=== PATIENT | male | born 1975 | race Caucasian/White ===

== ENCOUNTER 2017-01-29 09:52 | Inpatient (IN) | payer MEDICARE, MEDICAID ==
[2017-01-29] MEDS ORDERED: LORazepam 2 MG/ML SYRINGE IM STA (12:54)
[2017-01-29] MEDS ORDERED: HALOPERIDOL LACTATE 5 MG/ML 1 ML VIAL IM PRN (12:55)
--- NOTE | 2017-01-29 13:58 | ED ---
Psych HPI - General Chief Complaint: Psychiatric Symptoms Stated Complaint: MENTAL HEALTH Time Seen by Provider: 01/29/17 10:58 Source: patient Mode of arrival: ambulatory - History of Present Illness Initial Comments: This 41-year-old white male presents with psychiatric concerns. He apparently is been very paranoid and been hearing voices. He is unable to relay any further significant history due to his paranoid state. He does have long- standing history of psychiatric disorders including schizoaffective disorder, depression, suicidal ideations, anxiety, and alcohol abuse. He apparently has not been taking any of his medications for the past one week per family member. No medical complaints or other concerns. - Related Data Home Medications Medication Instructions Recorded Confirmed Benztropine Mesylate [Cogentin] 1 mg PO BID@0800,1200 01/29/17 01/29/17 QUEtiapine [SEROquel] 400 mg PO HS 01/29/17 01/29/17 risperiDONE [RisperDAL] 1 mg PO DAILY 01/29/17 01/29/17 risperiDONE [RisperDAL] 2 mg PO HS 01/29/17 01/29/17 Previous Rx's Medication Instructions Recorded Divalproex ER [Depakote ER] 1,000 mg PO HS #14 [id number] 01/26/16 Allergies Allergy/AdvReac Type Severity Reaction Status Date / Time Penicillins Allergy Mild Unknown Verified 01/29/17 09:55 Childhood Review of Systems ROS Statement: Those systems with pertinent positive or pertinent negative responses have been documented in the HPI. ROS Other: All systems not noted in ROS Statement are negative. Past Medical History Past Medical History: Hyperlipidemia, Hypertension Additional Past Medical History / Comment(s): Pt did not provide any med history , but from previous visits per documentation, pt had hyperlipidemia and HTN. History of Any Multi-Drug Resistant Organisms: None Reported Past Surgical History: Tonsillectomy Past Anesthesia/Blood Transfusion Reactions: No Reported Reaction Past Psychological History: Anxiety, Depression, Schizophrenia Smoking Status: Current every day smoker Past Alcohol Use History: Heavy Additional Past Alcohol Use History / Comment(s): 3-4 beers three times a week Past Drug Use History: None Reported Additional Drug Use History / Comment(s): Pt states he drinks about 4-5 24 oz. beers about 2-3 times a week, he states he has been drinking more the last year and 1/2. - Past Family History Father Additional Family Medical History / Comment(s): Patient is unable to give any history on his mother or father. He does not have any brothers. He has one sister that apparently is healthy. He has no children. General Exam - General Exam Comments Initial Comments: GENERAL: The patient is well nourished and well hydrated. VITAL SIGNS: Heart rate, blood pressure, respiratory rate reviewed as recorded in nurse's notes. EYES: Pupils are round and reactive. Extraocular movements are intact. No conjunctival / lid redness or swelling. ENT: No external evidence of injury, swelling, or ecchymosis. Airway is patent. Throat is clear. NECK: Nontender. No swelling or evidence of injury. No subcutaneous emphysema. Trachea is midline. No thyroid mass. HEART: Regular rate and rhythm. Good peripheral pulses. LUNGS/CHEST: Breath sounds clear and equal bilaterally. No rales, rhonchi, or wheezes. No ecchymosis, subcutaneous emphysema, or tenderness. ABDOMEN: Abdomen soft without tenderness. No palpable masses or organomegaly. No peritoneal signs. No abdominal wall swelling or ecchymosis. EXTREMITIES: No extremity tenderness. Normal muscle tone and function. No thoracolumbar tenderness. NEUROLOGIC: Sensation is grossly intact. Cranial nerve exam reveals face is symmetrical, tongue is midline, speech is clear. SKIN: No abrasions or ecchymosis is noted. No induration or masses noted. PSYCHIATRIC: Bizarre paranoid and sometimes agitated behavior noted. Limitations: no limitations Course Vital Signs 01/29/17 13:26 Pulse Rate 85 Respiratory 18 Rate Blood Pressure 137/79 O2 Sat by Pulse 96 Oximetry Medical Decision Making - Medical Decision Making The patient was seen and examined. Laboratory is reviewed. The psychiatric team is consult and they would like to admit the patient to the hospital for further psychiatric treatment. It is felt as though he is medically cleared for this. - Lab Data Lab Results 01/29/17 Range/Units 13:13 Urine Opiates Screen Not Detected (NotDetected) Ur Oxycodone Screen Not Detected (NotDetected) Urine Methadone Screen Not Detected (NotDetected) Ur Propoxyphene Screen Not Detected (NotDetected) Ur Barbiturates Screen Not Detected (NotDetected) U Tricyclic Antidepress Not Detected (NotDetected) Ur Phencyclidine Scrn Not Detected (NotDetected) Ur Amphetamines Screen Not Detected (NotDetected) U Methamphetamines Scrn Not Detected (NotDetected) U Benzodiazepines Scrn Not Detected (NotDetected) Urine Cocaine Screen Not Detected (NotDetected) U Marijuana (THC) Screen Not Detected (NotDetected) Disposition Clinical Impression: Psychosis, Paranoia Disposition: ADMITTED IP TO THIS [facility] Condition: Fair Time of Disposition: 13:57 Decision Date: 01/29/17 Decision Time: 13:58
[2017-01-29] MEDS ORDERED: ACETAMINOPHEN TAB 325 MG TAB PO PRN (14:36)
[2017-01-29] MEDS ORDERED: MAG HYDROX/AL HYDROX/SIMETH 30 ML CUP PO PRN (14:36)
[2017-01-29] MEDS ORDERED: ZIPRASIDONE 20 MG VIAL IM PRN (14:36)
[2017-01-29] MEDS ORDERED: MAGNESIUM HYDROXIDE 2,400 MG/10 ML CUP PO PRN (14:36)
[2017-01-29] MEDS ORDERED: LORazepam 2 MG/ML SYRINGE IM PRN (14:43)
[2017-01-29] MEDS: LORazepam 1 MG TAB PO PRN (16:01)
[2017-01-29] MEDS: QUEtiapine 200 MG TAB PO SCH (20:36)
[2017-01-29] MEDS: risperiDONE 1 MG TAB PO SCH (20:36)
[2017-01-29] MEDS: DIVALPROEX ER 500 MG TAB.ER.24H PO SCH (20:38)
[2017-01-30] MEDS ORDERED: risperiDONE 0.5 MG TAB PO SCH (09:00)
[2017-01-30 10:04] LABS: Basophils # (A) 0.1 k/uL (0-0.2); Basophils % (A) 1 %; CH 28.4; CHCM 32.3; Eosinophils % (A) 0 %; HCT 49.1 % (39.0-53.0); HGB 15.6 gm/dL (13.0-17.5); Luc # (Auto) 0.21; Luc % (Auto) 3; Lymphocytes # (A) 2.3 k/uL (1.0-4.8); Lymphocytes % (A) 32 %; MCH 28.1 pg (25.0-35.0); MCHC 31.8 g/dL (31.0-37.0); MCV 88.2 fL (80.0-100.0); Mean Platelet Volume 8.2; Monocytes # (A) 0.5 k/uL (0-1.0); Monocytes % (A) 7 %; Neutrophils # (A) 4.1 k/uL (1.3-7.7); Neutrophils % (A) 57 %; RBC 5.57 m/uL (4.30-5.90); RDW 13.4 % (11.5-15.5); WBC 7.2 k/uL (3.8-10.6); WBC (Perox) 7.29
[2017-01-30] MEDS: BENZTROPINE MESYLATE 1 MG TAB PO SCH ×2 (10:15→13:06)
[2017-01-30] MEDS: NICOTINE 14MG/24HR PATCH TRANSDERM SCH (10:16)
[2017-01-30 10:24] LABS: ALT 44 U/L (21-72); AST 33 U/L (17-59); Alkaline Phosphatase 37 U/L (38-126); Anion Gap 11 mmol/L; Blood Urea Nitrogen 11 mg/dL (9-20); Calcium 9.8 mg/dL (8.4-10.2); Carbon Dioxide 26 mmol/L (22-30); Chloride 107 mmol/L (98-107); Glucose 124 mg/dL (74-99); Non-African American GFR(MDRD) >60 (>60 ml/min/1.73 sqM); Potassium 4.3 mmol/L (3.5-5.1); Sodium 144 mmol/L (137-145); Total Protein 6.9 g/dL (6.3-8.2)
--- NOTE | 2017-01-30 14:18 | P.CONS ---
History of Present Illness - History of Present Illness Patient refused to be seen by medicine. Past Medical History Past Medical History: Hyperlipidemia, Hypertension Additional Past Medical History / Comment(s): Pt did not provide any med history , but from previous visits per documentation, pt had hyperlipidemia and HTN. History of Any Multi-Drug Resistant Organisms: None Reported Past Surgical History: Tonsillectomy Past Anesthesia/Blood Transfusion Reactions: No Reported Reaction Past Psychological History: Anxiety, Depression, Schizophrenia Smoking Status: Current every day smoker Past Alcohol Use History: Heavy Additional Past Alcohol Use History / Comment(s): 3-4 beers three times a week Past Drug Use History: None Reported Additional Drug Use History / Comment(s): Pt states he drinks about 4-5 24 oz. beers about 2-3 times a week, he states he has been drinking more the last year and 1/2. - Past Family History Father Additional Family Medical History / Comment(s): Patient is unable to give any history on his mother or father. He does not have any brothers. He has one sister that apparently is healthy. He has no children. Medications and Allergies Home Medications Medication Instructions Recorded Confirmed Type Benztropine Mesylate [Cogentin] 1 mg PO BID@0800,1200 01/29/17 01/29/17 History QUEtiapine [SEROquel] 400 mg PO HS 01/29/17 01/29/17 History risperiDONE [RisperDAL] 0.5 mg PO DAILY 01/29/17 01/29/17 History risperiDONE [RisperDAL] 1 mg PO HS 01/29/17 01/29/17 History Allergies Allergy/AdvReac Type Severity Reaction Status Date / Time Penicillins Allergy Mild Unknown Verified 01/29/17 09:55 Childhood Physical Exam Vitals: Vital Signs Temp Pulse Resp BP 01/30/17 01:15 97.9 F 101 H 12 125/70 01/29/17 16:08 97.1 F L 92 18 139/96 Results CBC & Chem 7: 01/30/17 09:36 01/30/17 09:36 Labs: Abnormal Lab Results - Last 24 Hours (Table) 01/30/17 Range/Units 09:36 Glucose 124 H (74-99) mg/dL Alkaline Phosphatase 37 L (38-126) U/L
--- NOTE | 2017-01-30 15:21 | P.HP ---
Psychiatric H&P - . H&P Date: 01/30/17 History & Physical: IDENTIFYING DATA: Mr. Michel is a 41-year-old male who has history of a schizophrenia. HISTORY OF PRESENT ILLNESS: His aunt brought him to the ER. She complained that he stopped taking his psychiatric medication and has become increasingly paranoid and internally preoccupied. In the ER he was paranoid and had difficult time with the admission procedure. He was afraid to have his vital signs taken. He told the EPS nurse "you're not listening to me, I need to get out of here. I need to go down the quintanilla. I need to represent myself." I approach him when he was sitting in the hallway. He appeared sedated. He was writing haphazardly on a piece of paper. He was markedly suspicious. He initially refused the interview. He came to my office as far as a doorway threshold. He stood in the doorway and refused to enter the room. I offered, as an alternative, to meet in the activity room but he refused to enter the room. PAST PSYCHIATRIC HISTORY: He has had at least 8 prior admissions to this unit. The last was in December 2015 when he presented involuntarily with signs and symptoms of acute psychosis. His discharge diagnosis was paranoid schizophrenia and his discharge medications included Depakote 1000 mg at bedtime and Seroquel 100 mg twice a day and 600 mg at bedtime. He [facility]. His current medications include Cogentin 1 mg twice a day, Depakote ER 1000 mg at bedtime, Risperdal 3 mg per day in divided doses and Seroquel 400 mg at bedtime. According to the [facility] records, he is frequently noncompliant with prescribed medications. He's been treated with multiple antipsychotics including Invega, Invega Sustenna, haloperidol, Haldol Decanoate, Clozaril, Abilify and Abilify Maintenna. PAST MEDICAL HISTORY: Hyperlipidemia, hypertension. ALLERGIES: Penicillins. SUBSTANCE USE HISTORY: According to record she has history of alcohol use disorder and has been treated with ReVia. FAMILY PSYCHIATRIC/SUBSTANCE USE HISTORY: According to record his father and his grand father had history of mental illness. LEGAL HISTORY: Is not on probation, pro or has pending charges.. SOCIAL HISTORY: He was unwilling to provide information about his social history. According to the record, he lives in his own apartment. Is single never and has no children. He receives social security disability for mental illness. MENTAL STATUS EXAM: He presented as a disheveled and unkempt moderately obese 41 -year-old male who was guarded and suspicious. He was sitting at a table writing what appeared to be sentences but on closer inspection were not words. He did not make eye contact and did not attend to the interview. He had no prominent physical abnormalities. He had a flat facial expression. He is alert and oriented to person. He had marked psychomotor retardation but no abnormal involuntary movements. His speech was not spontaneous. His affect was blunted, anxious and suspicious. He would not answer questions about suicidality, homicidality, depressive cognitions, obsessions or phobias. He did not express clear paranoid ideation or delusional beliefs. His thinking was concrete and associations were not coherent or logical. He denies hallucinations but appeared to be responding to internal stimuli. Global impression of intellect is average to below. He has no understanding awareness of his mental illness or need for treatment. STRENGTHS: Stable housing, stable income, engagement with mental health services. WEAKNESSES: Chronic and severe mental illness, poor compliance with mental health treatment IMPRESSION: Is a 41-year-old single male who has a chronic and persistently severe mental illness. He presented to the unit with poor hygiene , marked paranoia and confusion. According to information obtained from the ACT team he has not been compliant with prescribed medications. He would benefit from a long-term injectable antipsychotic and continued inpatient psychiatric hospitalization. PRINCIPLE DIAGNOSIS: Schizophrenia chronic paranoid type with acute exacerbation , poor compliance with treatment, hypertension, hyperlipidemia RECOMMENDATION: Taper then discontinue risperidone. Begin Prolixin 5 mg by mouth twice a day and titrated according to tolerance and clinical effectiveness. Once we establish tolerance transition to Prolixin decanoate. Continue Seroquel 400 mg at bedtime and Depakote ER 1000 mg at bedtime. Discontinue Geodon 20 mg IM twice a day but continue Haldol 5 mg by IM every 6 hours when necessary for agitation or acute psychosis. Lorazepam 1 mg by mouth/ IM every 6 hours when necessary for agitation or acute anxiety. Encourage participation in therapeutic groups and activities as tolerated. Evaluate clinical status response to treatment on a daily basis. Allergies Allergy/AdvReac Type Severity Reaction Status Date / Time Penicillins Allergy Mild Unknown Verified 01/29/17 09:55 Childhood Vital Signs Temp 97.9 F 01/30/17 01:15 Pulse 101 H 01/30/17 01:15 Resp 12 01/30/17 01:15 BP 125/70 01/30/17 01:15 Pulse Ox 96 01/29/17 13:26 Laboratory Last Values Urine Opiates Screen Not Detected (NotDetected) 01/29/17 13:13 Ur Oxycodone Screen Not Detected (NotDetected) 01/29/17 13:13 Urine Methadone Screen Not Detected (NotDetected) 01/29/17 13:13 Ur Propoxyphene Screen Not Detected (NotDetected) 01/29/17 13:13 Ur Barbiturates Screen Not Detected (NotDetected) 01/29/17 13:13 U Tricyclic Antidepress Not Detected (NotDetected) 01/29/17 13:13 Ur Phencyclidine Scrn Not Detected (NotDetected) 01/29/17 13:13 Ur Amphetamines Screen Not Detected (NotDetected) 01/29/17 13:13 U Methamphetamines Scrn Not Detected (NotDetected) 01/29/17 13:13 U Benzodiazepines Scrn Not Detected (NotDetected) 01/29/17 13:13 Urine Cocaine Screen Not Detected (NotDetected) 01/29/17 13:13 U Marijuana (THC) Screen Not Detected (NotDetected) 01/29/17 13:13 01/30/17 07:49 01/30/17 10:28 01/30/17 11:45 01/30/17 14:59
[2017-01-30] MEDS: risperiDONE 1 MG TAB PO SCH (20:14)
[2017-01-30] MEDS: QUEtiapine 200 MG TAB PO SCH (20:14)
[2017-01-30] MEDS: DIVALPROEX ER 500 MG TAB.ER.24H PO SCH (20:14)
[2017-01-31] MEDS: BENZTROPINE MESYLATE 1 MG TAB PO SCH ×2 (10:20→12:01)
[2017-01-31] MEDS: NICOTINE 14MG/24HR PATCH TRANSDERM SCH (10:20)
--- NOTE | 2017-01-31 13:45 | P.PN ---
Subjective Principal diagnosis: SUBJECTIVE: I reviewed the medical record, interviewed Crescencio and discuss his treatment and treatment plan during team meeting. He approached me several times throughout the day appearing as though he had a concern. However, he had difficulty expressing himself. In the afternoon he came into my office and sat in the far corner the room. He told me that he does not want to continue with Depakote because it makes him feel sick. I explained that his outpatient provider requested that we prescribed Prolixin. We are in the process of tapering the Risperdal. He replied that he had received "Prolixin shots" in the past and "I don't like needles." OBJECTIVE: He presented as a disheveled and slightly malodorous 41-year-old male who was restless and confused. He did not make eye contact. He appeared to have difficulty attending to the interview. He had no prominent physical abnormalities. He had a flat facial expression. He was alert and oriented to person and place. He restless but showed no abnormal involuntary movements. His speech was not spontaneous. He showed paucity of speech and paucity of content of speech. He appeared to have difficulty organizing his thoughts and at times appeared to be blocking. His affect was blunted. She did not reply to questions about suicidality or homicidality. He appeared not to understand questions about depressive cognitions. He did not express ideas reference or phobias. He appeared suspicious and frequently scanned the room with his eyes. He did not express a clear paranoid delusional belief. He looked distressed when I inquired about auditory hallucinations. She appeared to be responding to internal stimuli. He was awake pacing the hallway most of the night and went to his bed periodically. He slept a total of 2.5 hours as of 5 AM. He has not attended any of the therapeutic groups or activities. ASSESSMENT: He is markedly mentally ill and minimally improve from admission. He is acutely psychotic and reluctant to transition from oral to injectable antipsychotic medications. PLAN: Continue inpatient hospitalization due to the severity of his psychosis. Continue Seroquel 400 mg at bedtime and Prolixin 5 mg twice a day. Continue taper off risperidone. Discontinue Depakote. We may need to proceed with involuntary hospitalization given his refusal to consider long-acting antipsychotic medications and necessary treatment since he has a history of noncompliance with oral medications. Encourage participation in therapeutic groups and activities as tolerated. Evaluate clinical status response to treatment on a daily basis. Monitor compliance with prescribed medications. Objective - Vital Signs Vital signs: Vital Signs Temp 98.0 F 01/31/17 01:29 Pulse 114 H 01/31/17 01:29 Resp 18 01/31/17 01:29 BP 128/90 01/31/17 01:29 Pulse Ox 96 01/29/17 13:26 - Labs CBC & Chem 7: 01/30/17 09:36 01/30/17 09:36
[2017-01-31] MEDS: risperiDONE 1 MG TAB PO SCH (21:18)
[2017-01-31] MEDS: QUEtiapine 200 MG TAB PO SCH (21:18)
[2017-02-01] MEDS: NICOTINE 14MG/24HR PATCH TRANSDERM SCH (09:04)
[2017-02-01] MEDS: BENZTROPINE MESYLATE 1 MG TAB PO SCH ×2 (09:05→12:01)
--- NOTE | 2017-02-01 16:18 | P.PN ---
Progress Note - Text SUBJECTIVE: I reviewed the medical record, interviewed Crescencio and discuss his treatment and treatment plan during team meeting. He approached me several times throughout the day appearing as though he had a concern. However, he had difficulty expressing himself. He would not come into my office beyond the door threshold. He appeared guarded, confused and extremely paranoid OBJECTIVE: He presented as a disheveled and slightly malodorous 41-year-old male who was restless and confused. He did not make eye contact. He appeared to have difficulty attending to the interview. He had no prominent physical abnormalities. He had a flat facial expression. He was alert and oriented to person and place. He restless but showed no abnormal involuntary movements. His speech was not spontaneous. He showed paucity of speech and paucity of content of speech. He appeared to have difficulty organizing his thoughts and at times appeared to be blocking. His affect was blunted. She did not reply to questions about suicidality or homicidality. He appeared not to understand questions about depressive cognitions. He did not express ideas reference or phobias. He was guarded and suspicious. He did not express a clear paranoid delusional belief. He looked distressed when I inquired about auditory hallucinations. She appeared to be responding to internal stimuli. He was awake pacing the hallway most of the night and went to his bed periodically. He slept 3 hours last night ASSESSMENT: He is markedly mentally ill and minimally improve from admission. He is acutely psychotic and reluctant to transition from oral to injectable antipsychotic medications. PLAN: Continue inpatient hospitalization due to the severity of his psychosis. Continue Seroquel 400 mg at bedtime and Prolixin 5 mg twice a day. Continue taper off risperidone. We may need to proceed with involuntary hospitalization given his refusal to consider long-acting antipsychotic medications and necessary treatment since he has a history of noncompliance with oral medications. Encourage participation in therapeutic groups and activities as tolerated. Evaluate clinical status response to treatment on a daily basis. Monitor compliance with prescribed medications.
[2017-02-01] MEDS: QUEtiapine 200 MG TAB PO SCH (20:08)
[2017-02-02] MEDS: BENZTROPINE MESYLATE 1 MG TAB PO SCH ×2 (09:20→12:30)
[2017-02-02] MEDS: NICOTINE 14MG/24HR PATCH TRANSDERM SCH (09:20)
--- NOTE | 2017-02-02 19:47 | P.PN ---
Progress Note - Text Date of service: 02/02/2017 Chief complaint: "I need my space I have to go back to my room" Subjective: The patient has been seeing today as follow-up, chart reviewed, case discussed with the treatment team. The patient refused to see me today. He came to my office and before entering the office attended back and he stated that he couldn 't stay and he has to be alone. Further attempt to meet the patient was unsuccessful as he continued to refuse to meet with me. According to the nursing report the patient is paranoid and confused and he is currently followed by the act team. The patient has not been taking his medication before admission and he is currently on Prolixin. Objective: Vitals has been reviewed. Mental status examination; Appearance: The patient appears older than, disheveled, no specific features. Gait/posture: Normal gait, Normal arm was swinging: No abnormal movements. Attitude and behavior: Guarded, not engaged, not cooperative, intermittent eye contact. Motor activity: psychomotor agitation Speech: Loud Mood: Irritable, agitated Affect: Constricted Thought form: Unable to assess. Thought content: Unable to assess but very paranoid and psychotic. Perception: Unable to assess but he looks responding to internal stimuli Attention: Unable to assess. Orientation: Unable to assess. Insight: Patient has very poor insight about his psychiatric disorder. Judgment: Patient has very poor judgment about his psychiatric treatment. Assessment: Schizophrenia Plan: Continue current medications. Continue encouraging patient for more engagement in treatment. Continue inpatient level of care for further stabilization and monitoring of psychotic symptoms.
[2017-02-02] MEDS: QUEtiapine 200 MG TAB PO SCH (20:39)
[2017-02-03] MEDS: BENZTROPINE MESYLATE 1 MG TAB PO SCH ×2 (09:30→12:41)
[2017-02-03] MEDS: NICOTINE 14MG/24HR PATCH TRANSDERM SCH (09:30)
--- NOTE | 2017-02-03 17:10 | P.PN ---
Progress Note - Text Date of service: 02/03/2017 Chief complaint: "I am not comfortable with people" Subjective: The patient has been seen today as follow-up, chart reviewed, case discussed with the treatment team. Today the patient accepted to talk to me, but he presented very paranoid, guarded, and internally preoccupied. The patient was very evasive and responds to most questions with one-word. Generally vision denies any symptoms, but he wasn't able to talk about his symptoms or addressing his emotions. Patient denies depression, anxiety, or mood. Patient denies suicidal or homicidal thoughts, intentions, or plans. Patient denies auditory or visual hallucinations. He reports that that he preferred to stay by himself and he doesn't feel comfortable around people. Objective: Vitals has been reviewed. Mental status examination; Appearance: The patient appears older than, partially disheveled, no specific features. Gait/posture: Normal gait, Normal arm was swinging: No abnormal movements. Attitude and behavior: Guarded, not engaged, not cooperative, starring eye contact. Motor activity: psychomotor retardation Speech: Loud Mood: Irritable, agitated Affect: Constricted Thought content: Paranoid, denied suicidal or homicidal thoughts. Perception: Denies auditory or visual hallucinations, but he looks responding to internal stimuli Attention: Patient has fair attention but he couldn't perform serial 7 Orientation: Patient is fully oriented to time, person, place, and situation. Insight: Patient has very poor insight about his psychiatric disorder. Judgment: Patient has very poor judgment about his psychiatric treatment. Assessment: Schizophrenia Plan: Continue current medications. Seroquel 400 mg at bedtime for psychosis. Prolixin 5 mg by mouth twice a day for psychotic symptoms. Continue encouraging patient for more engagement in treatment. Continue inpatient level of care for further stabilization and monitoring of psychotic symptoms.
[2017-02-03] MEDS: QUEtiapine 200 MG TAB PO SCH (20:50)
[2017-02-04] MEDS: BENZTROPINE MESYLATE 1 MG TAB PO SCH ×2 (09:08→12:21)
[2017-02-04] MEDS: NICOTINE 14MG/24HR PATCH TRANSDERM SCH (09:09)
--- NOTE | 2017-02-04 15:54 | P.PN ---
Progress Note - Text SUBJECTIVE: I reviewed the medical record, interviewed Crescencio and discuss his treatment and treatment plan during team meeting. He would not come into my office for an interview. We talked in the hallway and during the conversation he made no eye contact and looked about the hallway as though he were responding to internal stimuli. He was pressed preoccupied about discharge and demanded a "date and time" when he would be discharged. OBJECTIVE: He presented as a disheveled and 41-year-old male who was restless and confused. He did not make eye contact. He appeared to have difficulty attending to the interview. He had no prominent physical abnormalities. He had a flat facial expression. He was alert and oriented to person and place. He restless but showed no abnormal involuntary movements. His speech was not spontaneous. He showed paucity of speech and paucity of content of speech. He appeared to have difficulty organizing his thoughts and at times appeared to be blocking. His affect was blunted. He did not express ideas reference or phobias. He was guarded and suspicious. He did not express a clear paranoid delusional belief. He looked distressed when I inquired about auditory hallucinations. She appeared to be responding to internal stimuli. He was awake pacing the hallway most of the night and went to his bed periodically. He slept 2 hours last night According to the MAR he's been compliant with both prescribed Seroquel and Prolixin. ASSESSMENT: He is markedly mentally ill and minimally improve from admission. He is acutely psychotic and reluctant to transition from oral to injectable antipsychotic medications. PLAN: Continue inpatient hospitalization due to the severity of his psychosis. Continue Seroquel 400 mg at bedtime and Prolixin 5 mg twice a day. Discuss transitioning to injectable Prolixin. Encourage participation in therapeutic groups and activities as tolerated. Evaluate clinical status response to treatment on a daily basis. Monitor compliance with prescribed medications.
[2017-02-04] MEDS: QUEtiapine 200 MG TAB PO SCH (21:07)
[2017-02-05] MEDS: BENZTROPINE MESYLATE 1 MG TAB PO SCH ×2 (09:36→12:05)
[2017-02-05] MEDS: NICOTINE 14MG/24HR PATCH TRANSDERM SCH (09:36)
--- NOTE | 2017-02-05 15:48 | P.PN ---
Progress Note - Text SUBJECTIVE: I reviewed the medical record, interviewed Crescencio and discuss his treatment and treatment plan during team meeting. He wished to speak with me but had difficulty organizing his thoughts to ask a coherent question. I invited him into. my office and he stepped through the doorway. He stood just beyond door threshold wasn't open. He refused to sit down. He looked confused and suspicious. He looked around the office as though he responding to internal stimuli. OBJECTIVE: He presented as a disheveled and 41-year-old male who was restless and confused. He did not make eye contact. He appeared to have difficulty attending to the interview. He had no prominent physical abnormalities. He had a flat facial expression. He was alert and oriented to person and place. He restless but showed no abnormal involuntary movements. His speech was not spontaneous. He showed paucity of speech and paucity of content of speech. He appeared to have difficulty organizing his thoughts and at times appeared to be blocking. His affect was blunted. He did not express ideas reference or phobias. He was guarded and suspicious. He did not express a clear paranoid delusional belief. He looked distressed when I inquired about auditory hallucinations. She appeared to be responding to internal stimuli. He slept 3 hours last night According to the MAR he's been compliant with both prescribed Seroquel and Prolixin. ASSESSMENT: He is markedly mentally ill and minimally improve from admission. He is acutely psychotic and reluctant to transition from oral to injectable antipsychotic medications. PLAN: Continue inpatient hospitalization due to the severity of his psychosis. Continue Seroquel 400 mg at bedtime and Prolixin 5 mg twice a day. Discuss transitioning to injectable Prolixin. Encourage participation in therapeutic groups and activities as tolerated. Evaluate clinical status response to treatment on a daily basis. Monitor compliance with prescribed medications.
[2017-02-05] MEDS: QUEtiapine 200 MG TAB PO SCH (21:48)
[2017-02-06] MEDS: BENZTROPINE MESYLATE 1 MG TAB PO SCH ×2 (08:44→13:04)
[2017-02-06] MEDS: NICOTINE 14MG/24HR PATCH TRANSDERM SCH (08:45)
--- NOTE | 2017-02-06 15:51 | P.PN ---
Progress Note - Text SUBJECTIVE: I reviewed the medical record, interviewed Crescencio and discuss his treatment and treatment plan during team meeting. He approached me and asked how he can talk to his outpatient provider about his medications. He alleged that his outpatient provider would not listen to him and prescribes medications that he does not wish to take. I pushed him about switching from oral to Prolixin Decanoate. He replied "injections are conspiring holiness." When I ask questions about his holiness he appeared suspicious. He stated that he "studied Jehovah witness ... And you knew what they believe." I asked him what alleging he practices and he replied "it's a secret." OBJECTIVE: He presented as a disheveled and 41-year-old male who was restless and confused. He did not make eye contact. He appeared to have difficulty attending to the interview. He had no prominent physical abnormalities. He had a flat facial expression. He was alert and oriented to person and place. He restless but showed no abnormal involuntary movements. His speech was not spontaneous. He showed paucity of speech and paucity of content of speech. He appeared to have difficulty organizing his thoughts and at times appeared to be blocking. His affect was blunted. He did not express ideas reference or phobias. He was guarded and suspicious. He did not express a clear paranoid delusional belief. He looked distressed when I inquired about auditory hallucinations. She appeared to be responding to internal stimuli. He slept 4 hours last night According to the MAR he's been compliant with both prescribed Seroquel and Prolixin. ASSESSMENT: He is markedly mentally ill and minimally improve from admission. He is acutely psychotic and reluctant to transition from oral to injectable antipsychotic medications. PLAN: Continue inpatient hospitalization due to the severity of his psychosis. Continue Seroquel 400 mg at bedtime and Prolixin 5 mg twice a day. Continue to discuss transitioning to injectable Prolixin. Encourage participation in therapeutic groups and activities as tolerated. Evaluate clinical status response to treatment on a daily basis. Monitor compliance with prescribed medications.
[2017-02-06] MEDS: QUEtiapine 200 MG TAB PO SCH (20:25)
[2017-02-07] MEDS: BENZTROPINE MESYLATE 1 MG TAB PO SCH ×2 (09:27→12:18)
[2017-02-07] MEDS: NICOTINE 14MG/24HR PATCH TRANSDERM SCH (09:28)
--- NOTE | 2017-02-07 12:55 | P.PN ---
Progress Note - Text SUBJECTIVE: I reviewed the medical record, interviewed Crescencio and discuss his treatment and treatment plan during team meeting. He came into my office and sat in a chair in the far corner close to the door. He asked me if I was his doctor and when will he be discharged. I replied that he still appears confused and talked about believing that [facility] was "tapping into the phone." He asked if he would be discharged if he agreed to the Prolixin shots. OBJECTIVE: He presented as a disheveled and 41-year-old male who appeared confused. He did not make eye contact. He had difficulty attending to the interview. Twice during interview he asked me to repeat myself because he was not attending. He had no prominent physical abnormalities. He had a flat facial expression. He was alert and oriented to person and place. He was not restless and showed no abnormal involuntary movements. His speech was not spontaneous. He showed paucity of speech and paucity of content of speech. He appeared to have difficulty organizing his thoughts and at times appeared to be blocking. His affect was flat. He did not express ideas reference or phobias. He was guarded and suspicious. He did not express a clear paranoid delusional belief. He looked distressed when I inquired about auditory hallucinations. She appeared to be responding to internal stimuli. He slept 5 hours last night According to the MAR he's been compliant with both prescribed Seroquel and Prolixin. ASSESSMENT: He is markedly mentally ill and moderately improve from admission. He is acutely psychotic and remains reluctant to transition from oral to injectable antipsychotic medications. PLAN: Continue inpatient hospitalization due to the severity of his psychosis. Continue Seroquel 400 mg at bedtime and Prolixin 5 mg twice a day. Continue to discuss transitioning to injectable Prolixin. Encourage participation in therapeutic groups and activities as tolerated. Evaluate clinical status response to treatment on a daily basis. Monitor compliance with prescribed medications.
[2017-02-07] MEDS: QUEtiapine 200 MG TAB PO SCH (21:18)
[2017-02-08] MEDS: BENZTROPINE MESYLATE 1 MG TAB PO SCH ×2 (09:12→13:43)
[2017-02-08] MEDS: NICOTINE 14MG/24HR PATCH TRANSDERM SCH (09:15)
--- NOTE | 2017-02-08 10:00 | P.PN ---
Progress Note - Text SUBJECTIVE: I reviewed the medical record, interviewed Crescencio and discuss his treatment and treatment plan during team meeting. He approached me and asked how he can talk to his outpatient provider about his medications. He alleged that his outpatient provider would not listen to him and prescribes medications that he does not wish to take. OBJECTIVE: He presented as a disheveled and 41-year-old male who was restless and confused. He did not make eye contact. He appeared to have difficulty attending to the interview. He had no prominent physical abnormalities. He had a flat facial expression. He was alert and oriented to person and place. He restless but showed no abnormal involuntary movements. His speech was not spontaneous. He showed paucity of speech and paucity of content of speech. He appeared to have difficulty organizing his thoughts and at times appeared to be blocking. His affect was blunted. He did not express ideas reference or phobias. He was guarded and suspicious. He did not express a clear paranoid delusional belief. He looked distressed when I inquired about auditory hallucinations. She appeared to be responding to internal stimuli. He slept 4 hours last night According to the MAR he's been compliant with both prescribed Seroquel and Prolixin. ASSESSMENT: He is markedly mentally ill and moderately improve from admission. He is acutely psychotic and reluctant to transition from oral to injectable antipsychotic medications. PLAN: Continue inpatient hospitalization due to the severity of his psychosis. Continue Seroquel 400 mg at bedtime and Prolixin 5 mg twice a day. Continue to discuss transitioning to injectable Prolixin. Encourage participation in therapeutic groups and activities as tolerated. Evaluate clinical status response to treatment on a daily basis. Monitor compliance with prescribed medications.
--- NOTE | 2017-02-08 12:34 | P.PN ---
Progress Note - Text SUBJECTIVE: I reviewed the medical record, interviewed Crescencio and discuss his treatment and treatment plan during team meeting. He is only concern was discharge. He mentioned concerns about "what's going on" but would not elaborate or discuss his thoughts. He refused to consent to Prolixin Decanoate. OBJECTIVE: He presented as a disheveled and 41-year-old male who appeared confused. He did not make eye contact. He had difficulty attending to the interview. He had no prominent physical abnormalities. He had a flat facial expression. He was alert and oriented to person and place. He was not restless and showed no abnormal involuntary movements. His speech was not spontaneous. He showed paucity of speech and paucity of content of speech. He appeared to have difficulty organizing his thoughts and appeared to be blocking. His affect was flat. He did not express ideas reference or phobias. He was guarded and suspicious. He did not express a clear paranoid delusional belief. He appeared to be responding to internal stimuli. He slept 4 hours last night According to the MAR he's been compliant with both prescribed Seroquel and Prolixin. ASSESSMENT: He is markedly mentally ill and moderately improve from admission. He is acutely psychotic and remains reluctant to transition from oral to injectable antipsychotic medications. PLAN: Continue inpatient hospitalization due to the severity of his psychosis. Continue Seroquel 400 mg at bedtime and Prolixin 5 mg twice a day. Continue to discuss transitioning to injectable Prolixin. Encourage participation in therapeutic groups and activities as tolerated. Evaluate clinical status response to treatment on a daily basis. Monitor compliance with prescribed medications.
[2017-02-08] MEDS: QUEtiapine 200 MG TAB PO SCH (21:22)
[2017-02-09] MEDS: BENZTROPINE MESYLATE 1 MG TAB PO SCH ×2 (10:21→13:22)
[2017-02-09] MEDS: NICOTINE 14MG/24HR PATCH TRANSDERM SCH (10:23)
[2017-02-09] MEDS: QUEtiapine 200 MG TAB PO SCH (21:39)
--- NOTE | 2017-02-09 21:52 | P.PN ---
Progress Note - Text Interval history: Patient seen in cross coverage today for Dr. Cuellar. He seems to make reference to having received a dose of Prozac which felt good and then was placed on Prolixin which he seems to relay was more negative but does not seem to verbalize any specific adverse psychotropic medication side effects. He is currently on the Prolixin and Seroquel. He reports that he feels like he is reached his goal of the hospitalization to be able to communicate better with [facility]. Mental status exam: He is alert and cooperative with the interview. His speech is fluent, not rapid or pressured. Thought processes are organized. His affect is restricted. Seems to describe his mood is doing well. He has not verbalize any thoughts of harm to self or others. He does not verbalize any hallucinations. He does not show any agitation. Plan: Patient be maintained on current psychotropic medication regimen. Monitor for any adverse side effects. He'll discuss with Dr. Cuellar further regarding his psychotropic medication regimen. Continue to cover for Dr. Cuellar through the weekend.
[2017-02-10] MEDS: BENZTROPINE MESYLATE 1 MG TAB PO SCH ×2 (09:28→12:05)
[2017-02-10] MEDS: NICOTINE 14MG/24HR PATCH TRANSDERM SCH (09:28)
--- NOTE | 2017-02-10 17:36 | P.PN ---
Progress Note - Text Interval history: Patient is seen in cross coverage today for Dr. Cuellar. He reports that his mood overall is level. He describes it as always about a 6 out of 10. He describes that he was born in this hospital and he was born by C- section, he feels as though his mom has some bitterness towards him. He makes reference to wanting a nurse to sit in with him during his session tomorrow. he again makes reference to having received a dose of Prozac and felt improvement with that. Mental status exam: He is alert and cooperative with the interview. His speech is fluent, not rapid or pressured. He does not show any agitation. His mood is described as level, 6 out of 10. He denies any thoughts of harm to self or others. He denies any hallucinations. Plan: We'll maintain current psychotropic medication regimen. Dr. Cuellar to resume care this patient starting tomorrow. Monitor for any medication side effects.
[2017-02-10] MEDS: QUEtiapine 200 MG TAB PO SCH (21:11)
[2017-02-11] MEDS: BENZTROPINE MESYLATE 1 MG TAB PO SCH ×2 (10:09→14:37)
--- NOTE | 2017-02-11 15:02 | P.PN ---
Progress Note - Text SUBJECTIVE: I reviewed the medical record, interviewed Crescencio and discuss his treatment and treatment plan during team meeting. Unlike prior interviews he came into my office and sat down. He did not appear guarded or suspicious. He complained about the continued hospitalization and expressed desire to be discharged home. He denied side effects to current medications but, again, refuses consent for Prolixin Decanoate. He asked me to explain my reason for recommending Prolixin decanoate as opposed to the oral medications. I explained that we are concerned about his compliance with the oral medications. He denied that he would have a problem with compliance. In response to questions about psychotic symptoms such as auditory hallucinations responded "I've been dealing with schizophrenia for a long time. " He would neither deny nor admit that he is experiencing auditory hallucinations or thought disturbances. OBJECTIVE: He presented as a disheveled and 41-year-old male who was pleasant on approach. He made eye contact and appeared to attend to the interview. He had no prominent physical abnormalities. He had a flat facial expression. He was alert and oriented to person , place and time.. He was not restless and showed no abnormal involuntary movements. His speech was spontaneous. He showed paucity of speech and paucity of content of speech. He appeared to have difficulty organizing his thoughts and appeared to be blocking. His affect was flat. He did not express ideas reference or phobias. He remains guarded and suspicious but did not express a clear paranoid delusional belief. He did not appear to be responding to internal stimuli. He slept 4 hours last night According to the MAR he's been compliant with both prescribed Seroquel and Prolixin. ASSESSMENT: He is moderately mentally ill and much improve from admission. He appears his paranoid and internally preoccupied but remains reluctant to transition from oral to injectable antipsychotic medications. PLAN: Continue inpatient hospitalization due to the severity of his psychosis. Continue Seroquel 400 mg at bedtime and Prolixin 5 mg twice a day. Continue to discuss transitioning to injectable Prolixin. Encourage participation in therapeutic groups and activities as tolerated. Evaluate clinical status response to treatment on a daily basis. Monitor compliance with prescribed medications.
[2017-02-11] MEDS: QUEtiapine 200 MG TAB PO SCH (20:50)
[2017-02-12] MEDS: BENZTROPINE MESYLATE 1 MG TAB PO SCH ×2 (09:27→12:56)
--- NOTE | 2017-02-12 13:48 | P.PN ---
Progress Note - Text SUBJECTIVE: I reviewed the medical record, interviewed Crescencio and discuss his treatment and treatment plan during team meeting. He came into my office but sat at the far end of the room near the doorway. 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 He talked about the difficulty with the residents in the apartment next to him. He alleged that he complained to management but to no avail. He again declined my recommendation to transition from oral to Prolixin Decanoate. OBJECTIVE: He presented as a disheveled and 41-year-old male who was pleasant on approach. He made eye contact and appeared to attend to the interview. He had no prominent physical abnormalities. He had a flat facial expression. He was alert and oriented to person , place and time. He was not restless and showed no abnormal involuntary movements. His speech was spontaneous. He showed paucity of speech and paucity of content of speech. He appeared to have difficulty organizing his thoughts and appeared to be blocking. His affect was flat. He did not express ideas reference or phobias. He remains guarded and suspicious but did not express a clear paranoid delusional belief. He did not appear to be responding to internal stimuli. He slept 6 hours last night According to the MAR he's been compliant with both prescribed Seroquel and Prolixin. ASSESSMENT: He is moderately mentally ill and much improved from admission. He appears less paranoid and internally preoccupied but remains opposed to an injectable antipsychotic medications. PLAN: Continue inpatient hospitalization due to the severity of his psychosis. Continue Seroquel 400 mg at bedtime and Prolixin 5 mg twice a day. Continue to discuss transitioning to injectable Prolixin. Encourage participation in therapeutic groups and activities as tolerated. Evaluate clinical status response to treatment on a daily basis. Monitor compliance with prescribed medications.
[2017-02-12 15:20] VITALS: BMI 36.8
[2017-02-12] MEDS: QUEtiapine 200 MG TAB PO SCH (20:17)
[2017-02-13] MEDS: BENZTROPINE MESYLATE 1 MG TAB PO SCH ×2 (08:58→12:16)
--- NOTE | 2017-02-13 13:39 | P.PN ---
Progress Note - Text SUBJECTIVE: I reviewed the medical record, interviewed Crescencio and discuss his treatment and treatment plan during team meeting. He denied problems or concerns other than wishing to be discharge and "resume my life." He understands that he has a meeting tomorrow afternoon with his aunt and the ACT team from [facility]. We again talked about transitioning from oral to Prolixin Decanoate. He alleged a fear of needles and injections as result of a traumatic childhood experience; he "had to" have injections for ALLERGIES when he was a child. OBJECTIVE: He presented as a disheveled and 41-year-old male who was pleasant on approach. He made eye contact and appeared to attend to the interview. He had no prominent physical abnormalities. He had a flat facial expression. He was alert and oriented to person , place and time. He was not restless and showed no abnormal involuntary movements. His speech was spontaneous. He showed paucity of speech and paucity of content of speech. He appeared to have difficulty organizing his thoughts and appeared to be blocking. His affect was flat. He did not express ideas reference or phobias. He remains guarded and suspicious but did not express a clear paranoid delusional belief. He did not appear to be responding to internal stimuli. He slept 7 hours last night According to the MAR he's been compliant with both prescribed Seroquel and Prolixin. ASSESSMENT: He is moderately mentally ill and much improved from admission. He appears less paranoid and internally preoccupied but remains opposed to an injectable antipsychotic medications. PLAN: Continue inpatient hospitalization due to the severity of his psychosis. Continue Seroquel 400 mg at bedtime. Change Prolixin to 10 mg a.m beginning . Continue to discuss transitioning to injectable Prolixin. Encourage participation in therapeutic groups and activities as tolerated. Discharge after the meeting with his aunt and ACT team tomorrow. Evaluate clinical status response to treatment on a daily basis. Monitor compliance with prescribed medications.
[2017-02-13] MEDS: LORazepam 1 MG TAB PO PRN (16:24)
[2017-02-13] MEDS: QUEtiapine 200 MG TAB PO SCH (20:07)
[2017-02-14 02:01] VITALS: BP 97/56; PULSE 86; RESP 16; TEMP 97.8
[2017-02-14] MEDS: BENZTROPINE MESYLATE 1 MG TAB PO SCH ×2 (08:17→12:50)
--- NOTE | 2017-02-14 14:41 | P.DS ---
Providers Date of admission: 01/29/17 14:12 Attending physician: Edwin Cuellar MD Consults: 01/29/17 14:36 Consult Physician Routine Consulting Provider: Forrest Panda Consult Reason/Comments: H & P and medical care Do you want consulting provider notified?: Yes Primary care physician: Stated None - Discharge Diagnosis(es) (1) Poor compliance with medication Current Visit: Yes Status: Chronic Priority: High (2) Chronic schizophrenia Current Visit: No Status: Chronic Priority: High Hospital Course: Mr. Michel is a 41-year-old male who has history of a schizophrenia. is aunt brought him to the ER. She complained that he stopped taking his psychiatric medication and has become increasingly paranoid and internally preoccupied. In the ER he was paranoid and had difficult time with the admission procedure. He was afraid to have his vital signs taken. He told the EPS nurse "you're not listening to me, I need to get out of here. I need to go down the quintanilla. I need to represent myself." I approach him when he was sitting in the hallway. He appeared sedated. He was writing haphazardly on a piece of paper. He was markedly suspicious. He initially refused the interview. He came to my office as far as a doorway threshold. He stood in the doorway and refused to enter the room. I offered, as an alternative, to meet in the activity room but he refused to enter the room. He has had at least 8 prior admissions to this unit. The last was in December 2015 when he presented involuntarily with signs and symptoms of acute psychosis. His discharge diagnosis was paranoid schizophrenia and his discharge medications included Depakote 1000 mg at bedtime and Seroquel 100 mg twice a day and 600 mg at bedtime. He receives services through the [facility] treatment team. His current medications include Cogentin 1 mg twice a day, Depakote ER 1000 mg at bedtime, Risperdal 3 mg per day in divided doses and Seroquel 400 mg at bedtime. According to the [facility] records, he is frequently noncompliant with prescribed medications. He's been treated with multiple antipsychotics including Invega, Invega Sustenna, haloperidol, Haldol Decanoate , Clozaril, Abilify and Abilify Maintenna. We admitted him voluntarily to the psychiatric unit under care of this content writer. We provided a biopsychosocial assessment. The talent consultant venue coordinator completed initial physical exam and medical history. We continued the outpatient prescription of Seroquel 400 mg at bedtime and augmented the treatment with the Prolixin 5 mg by mouth twice a day. Her plan was to transition from oral to long-acting Prolixin decanoate. He was markedly paranoid on presentation to the unit. The paranoia gradually abated. He appeared to be responding to internal stimuli but would not admit to psychotic symptoms. He participated cautiously with therapeutic groups and activities. He posed no management problem and displayed no episodes of behavioral dyscontrol. She refused treatment with Prolixin Decanoate. He gave various explanations. He was more psychotic state he stated it was against his roman catholic. He was less paranoid he stated that he is afraid of needles as a result of her medical scientist experiences. He was preoccupied about discharge throughout the hospitalization. He agreed to continue with outpatient treatment and take prescribed medications. The elementary school social worker arranged a meeting with his aunt and the ACT team. Patient Condition at Discharge: Stable Plan - Discharge Summary New Discharge Prescriptions: QUEtiapine [SEROquel] 400 mg PO HS 30 Days fluPHENAZine [Prolixin 5MG] 10 mg PO DAILY 30 Days Discharge Medication List Benztropine Mesylate [Cogentin] 1 mg PO BID@0800,1200 01/29/17 [History] QUEtiapine [SEROquel] 400 mg PO HS 30 Days 02/14/17 [Rx] fluPHENAZine [Prolixin 5MG] 10 mg PO DAILY 30 Days 02/14/17 [Rx] Follow up Appointment(s)/Referral(s): [facility]Outside] - 02/15/17 (ACT team 02/15/17 10:30am Medication review with Ellie Arceo 02/15/17 at 1pm) None,Stated [Primary Care Provider] - 1-2 days Patient Instructions/Handouts: Brief Psychotic Disorder (DC), Suicide Prevention for Adults (DC) Activity/Diet/Wound Care/Special Instructions: Activity and diet as tolerated. Avoid the use of street drugs and alcohol. Take all medications as prescribed. When you are in need of refills on your medications please contact your medical provider and/or outpatient psychiatrist to have this done. Please go to scheduled outpatient appointment for aftercare. If symptoms return or become worse call the crisis line at and/ or go to the nearest emergency room for an evaluation. Discharge Disposition: HOME SELF-CARE
== END 2017-02-14 14:40 | disposition home or self-care (01) | DRG 885 ==
LOC: EC 09:52 → 3MHU 14:12
PROVIDERS: ADMIT Psychiatry & Neurology Psychiatry; ATTEND Psychiatry & Neurology Psychiatry
DX: F20.0 Paranoid schizophrenia (principal); Z91.14 Patient's other noncompliance with medication regimen; I10 Essential (primary) hypertension; E78.5 Hyperlipidemia, unspecified; F17.200 Nicotine dependence, unspecified, uncomplicated; F10.10 Alcohol abuse, uncomplicated; F32.9 Major depressive disorder, single episode, unspecified; F41.9 Anxiety disorder, unspecified; Z79.899 Other long term (current) drug therapy; Z88.0 Allergy status to penicillin
CPT/HCPCS: 80053; 80164; 80306; 82075; 84443; 85025

== ENCOUNTER 2019-08-12 22:01 | Inpatient (IN) | payer MEDICARE, MEDICAID ==
--- NOTE | 2019-08-12 22:42 | ED ---
General Adult HPI - General Chief complaint: Psychiatric Symptoms Stated complaint: Mental Health Time Seen by Provider: 08/12/19 22:10 Source: patient, police, RN notes reviewed Mode of arrival: ambulatory Limitations: no limitations - History of Present Illness Initial comments: Patient is a pleasant 44-year-old male presenting to the emergency department with police escort for mental health evaluation. Patient is reportedly not been taking care of himself or showering. Patient states he does do this when he feels is necessary. Patient states he takes his medications when he feels is necessary and will not further explain that. Patient originally states he is only on medication for his heart however later admits being on mental health medication and again states he takes it only when necessary. Patient states he is sleeping and eating and drinking well. Patient denies physical complaints. Patient states no recent suicidal or homicidal thoughts. Patient denies any hallucinations. Patient denies any recent alcohol or street drugs. - Related Data Previous Rx's Medication Instructions Recorded QUEtiapine [SEROquel] 400 mg PO HS 30 Days tab 02/14/17 fluPHENAZine [Prolixin 5MG] 10 mg PO DAILY 30 Days tablet 02/14/17 Allergies Allergy/AdvReac Type Severity Reaction Status Date / Time Penicillins Allergy Mild Unknown Verified 08/12/19 22:17 Childhood Review of Systems ROS Statement: Those systems with pertinent positive or pertinent negative responses have been documented in the HPI. ROS Other: All systems not noted in ROS Statement are negative. Constitutional: Denies: fever Eyes: Denies: eye pain ENT: Denies: ear pain Respiratory: Denies: cough Cardiovascular: Denies: chest pain Endocrine: Denies: fatigue Gastrointestinal: Denies: abdominal pain Genitourinary: Denies: dysuria Musculoskeletal: Denies: back pain Skin: Denies: rash Neurological: Denies: weakness Psychiatric: Reports: as per HPI Past Medical History Past Medical History: Hyperlipidemia, Hypertension Additional Past Medical History / Comment(s): Pt did not provide any med history, but from previous visits per documentation, pt had hyperlipidemia and HTN. History of Any Multi-Drug Resistant Organisms: None Reported Past Surgical History: Tonsillectomy Past Anesthesia/Blood Transfusion Reactions: No Reported Reaction Past Psychological History: Anxiety, Depression, Schizophrenia Smoking Status: Current every day smoker Past Alcohol Use History: Occasional Past Drug Use History: None Reported - Past Family History Father Additional Family Medical History / Comment(s): Patient is unable to give any history on his mother or father. He does not have any brothers. He has one sister that apparently is healthy. He has no children. General Exam Limitations: no limitations General appearance: alert, in no apparent distress, other (Disheveled appearance. Body odor. Tobacco stained fingers.) Head exam: Present: normocephalic Eye exam: Present: normal appearance ENT exam: Present: normal exam Neck exam: Present: normal inspection Respiratory exam: Present: normal lung sounds bilaterally Cardiovascular Exam: Present: regular rate, normal rhythm GI/Abdominal exam: Present: soft. Absent: tenderness Extremities exam: Present: normal inspection Neurological exam: Present: alert Expanded Focused psych exam: Present: pressured speech Skin exam: Present: normal color Course Vital Signs 08/12/19 22:03 Temperature 98.4 F Pulse Rate 125 H Respiratory 18 Rate Blood Pressure 156/96 O2 Sat by Pulse 98 Oximetry Medical Decision Making - Medical Decision Making Patient seen by mental health services with plan for admission. Positive clinical certificate completed. Disposition Clinical Impression: Acute exacerbation of chronic schizophrenia Disposition: ADMITTED IP TO THIS HOSP Is patient prescribed a controlled substance at d/c from ED?: No Referrals: None,Stated [Primary Care Provider] - 1-2 days Decision Time: 00:31
[2019-08-13] MEDS ORDERED: LORazepam 2 MG/ML INJ IM STA (00:35)
[2019-08-13] MEDS ORDERED: ZIPRASIDONE 20 MG VIAL IM STA (00:35)
[2019-08-13] MEDS ORDERED: MAGNESIUM HYDROXIDE 2,400 MG/10 ML CUP PO PRN (01:29)
[2019-08-13] MEDS ORDERED: ACETAMINOPHEN TAB 325 MG TAB PO PRN (01:29)
[2019-08-13] MEDS ORDERED: ZIPRASIDONE 20 MG VIAL IM PRN (02:00)
--- NOTE | 2019-08-13 07:48 | P.CONS ---
History of Present Illness - Reason for Consult Consult date: 08/13/19 - Chief Complaint Schizophrenia - History of Present Illness This is a 44-year-old white male was admitted to the inpatient psychiatry unit because of schizophrenia. He has not been taking care of himself at home. At the time of examination patient is sleepy, he does not appear to be in distress. He denies any major medical problems. He denies vomiting or chest pain. Review of Systems 10 systems reviewed, pertinent positive and negative findings as in the HPI, no chest pain no abdominal pain Past Medical History Past Medical History: Hyperlipidemia, Hypertension Additional Past Medical History / Comment(s): Pt did not provide any med history, but from previous visits per documentation, pt had hyperlipidemia and HTN. History of Any Multi-Drug Resistant Organisms: None Reported Past Surgical History: Tonsillectomy Past Anesthesia/Blood Transfusion Reactions: No Reported Reaction Past Psychological History: Anxiety, Depression, Schizophrenia Smoking Status: Current every day smoker Past Alcohol Use History: Occasional Past Drug Use History: None Reported - Past Family History Father Additional Family Medical History / Comment(s): Patient is unable to give any history on his mother or father. He does not have any brothers. He has one sister that apparently is healthy. He has no children. Medications and Allergies Home Medications Medication Instructions Recorded Confirmed Type QUEtiapine [SEROquel] 400 mg PO HS 30 Days tab 02/14/17 08/12/19 Rx fluPHENAZine [Prolixin 5MG] 10 mg PO DAILY 30 Days tablet 02/14/17 08/12/19 Rx Allergies Allergy/AdvReac Type Severity Reaction Status Date / Time Penicillins Allergy Mild Unknown Verified 08/12/19 22:17 Childhood Physical Exam Vitals: Vital Signs Temp Pulse Pulse Resp BP BP Pulse Ox 08/13/19 05:19 98 F 93 18 145/83 08/12/19 22:03 98.4 F 125 H 18 156/96 98 Intake and Output 08/12/19 08/13/19 08/13/19 22:59 06:59 14:59 Other: Weight 94.801 kg Constitutional: No acute distress, conversant, pleasant Eyes: Anicteric sclerae ENMT: NC/AT,Oropharynx clear, no erythema, exudates Neck:Supple, FROM, no masses, or JVD Lungs: Clear to auscultation, Clear to percussion, Normal respiratory effort, no accessory muscle use Cardiovascular: Heart regular in rate and rhythm, No murmurs, gallops, or rubs no peripheral edema Abdominal: Soft Nontender, nom distended, no guarding, no rebound or rigidity, Normoactive bowel sounds No hepatomegaly Skin: Normal temperature, tone, texture, turgor Extremities:No digital cyanosis No clubbing, Psychiatric: Alert and oriented to person, place and time Neuro: Muscles Strength 5/5 in all 4 extremities, Assessment and Plan Plan: 1. Schizophrenia chronic with acute exacerbation: Management per psychiatry 2. Thank for the consultation
[2019-08-13] MEDS: NICOTINE 14MG/24HR PATCH TRANSDERM SCH (08:33)
--- NOTE | 2019-08-13 09:31 | P.HP ---
Psychiatric H&P - . History & Physical: Allergies Allergy/AdvReac Type Severity Reaction Status Date / Time Penicillins Allergy Mild Unknown Verified 08/12/19 22:17 Childhood Vital Signs Temp 98 F 08/13/19 05:19 Pulse 93 08/13/19 05:19 Resp 18 08/13/19 05:19 BP 145/83 08/13/19 05:19 Pulse Ox 98 08/12/19 22:03 Intake & Output 08/12/19 08/13/19 08/13/19 18:59 06:59 18:59 Weight 94.801 kg 08/13/19 09:21 IDENTIFYING DATA: This patient is a 44-year-old single male who was admitted to the mental health unit through the emergency room for acute symptoms of psychosis. HPI: The patient presents with a petition stating "not consistently taking medication. Hygiene has declined. Paranoid thoughts and agitation has increased. He feels the medications prescribed are toxins and asked this comic writer to inform Ellie Arceo that he will not let her help him commit suicide by taking the medications. Asked him to make an appointment or talk with Ellie Arceo on the phone and he declined stating I have freedom of orthodoxy and M cleansing the toxins she gave me". The patient is found in his room he does not wish to follow me to an interview room but did speak to me briefly. He is seated upright in his bed. He is tired appearing but not lethargic. He is unable to describe how he feels currently. He states he is here because he "made someone mad". He denies having suicidal or homicidal thoughts. He denies having any auditory or visual hallucinations. He indicates that he does not feel safe but does not provide any specifics. He is not a valid historian at this time. PAST PSYCHIATRIC HISTORY: Patient has had 10 psychiatric admissions to this mental health unit since 04/20/2014. He was last here under the care of Dr. Rosario. He carries diagnoses of schizo affective disorder bipolar type versus schizophrenia. There is documentation of alcohol use disorder. It appears he has last been prescribed Prolixin 10 mg in the morning Seroquel 400 mg at bedtime. In the past he has been on an invega, Abilify, Depakote. He verbalizes concerns about being on Seroquel. He endorses no history of suicide attempts. PMH: None reported ALLERGIES: Penicillin MEDICATIONS: As above CHEMICAL DEPENDENCY HISTORY: He reports that he will occasionally use alcohol but provides no specifics. [facility] does have him diagnosed with alcohol use disorder severe. It is unclear if he has ever been in inpatient chemical dependency treatment. FAMILY PSYCHIATRIC HISTORY: Previously documented that his father and grandfather had mental illness which was unspecified family suicide history unknown FAMILY CHEMICAL DEPENDENCY HISTORY: Unknown SOCIAL HISTORY: The patient is 44 years old she single he has no children he resides alone. He is unemployed and receives a disability income. Legal history unknown, abuse history unknown. MENTAL STATUS EXAM: The patient is an overweight male he has a disheveled appearance his hair appears overgrown he has a fall body odor. He is currently dressed in layers. Eye contact is poor he looks about the room. He frequently runs his hands through his hair and holds his head with both hands during questioning. He seems to struggle with maintaining focus on questions being asked. For the most part he seated upright in bed. He indicates that his medication is toxin specifically referring to the Seroquel. He is reporting no thoughts of harming himself or others. He indicates a history of hallucinations but states none are occurring now. Again he indicates he feels unsafe but will not specify further. He did not tolerate any cognitive questioning. He demonstrated no verbal or physical aggressiveness. He did seem to get more agitated however with routine questioning. The session was ended due to this observed discomfort. He has a documented diagnosis of tardive dyskinesia mainly involving mouth movements, it was difficult to observe during this interaction but we will continue to evaluate. STRENGTHS/WEAKNESSES: Strengths: Income, housing, [facility] [place] weaknesses: Compliance with medications, reported alcohol use INTELLECTUAL FUNCTIONING: Below average to average IMPRESSIONS: [] 1. Schizoaffective disorder bipolar type, alcohol use disorder severe, tardive dyskinesia PLAN: The patient has been admitted to the mental health unit on a petition and clinical certificate. He continues to demonstrate symptoms of psychosis that impair his insight and judgment. I will complete a second clinical certificate. We will reinitiate the Prolixin at 5 mg twice daily. He has been seen by internal medicine for routine history and physical exam. Social work will meet with the patient to complete a psychosocial assessment and begin discharge planning. We will monitor him for safety and encourage his full participation in the milieu. We will involve any support that he has in treatment and discharge planning as he will allow. He is encouraged to appropriately participate in the milieu.
[2019-08-13 10:45] LABS: Basophils # (A) 0.1 k/uL (0-0.2); Basophils % (A) 1 %; Eosinophils % (A) 0 %; HCT 51.6 % (39.0-53.0); HGB 16.8 gm/dL (13.0-17.5); Lymphocytes # (A) 1.8 k/uL (1.0-4.8); Lymphocytes % (A) 27 %; MCHC 32.5 g/dL (31.0-37.0); MCV 89.2 fL (80.0-100.0); Monocytes # (A) 0.4 k/uL (0-1.0); Monocytes % (A) 6 %; Neutrophils # (A) 4.3 k/uL (1.3-7.7); Neutrophils % (A) 64 %; Platelet Count 171 k/uL (150-450); RBC 5.79 m/uL (4.30-5.90); RDW 13.2 % (11.5-15.5); WBC 6.7 k/uL (3.8-10.6)
[2019-08-13 10:53] LABS: ALT 24 U/L (21-72); AST 26 U/L (17-59); African American GFR (CKD) >90 (>60 ml/min/1.73 sqM); Albumin 3.8 g/dL (3.5-5.0); Alkaline Phosphatase 48 U/L (38-126); Anion Gap 10 mmol/L; Bilirubin, Delta 0.2 mg/dL (0.0-0.2); Bilirubin,Unconjugated 0.5 mg/dL (0.0-1.1); Blood Urea Nitrogen 9 mg/dL (9-20); Calcium 9.5 mg/dL (8.4-10.2); Carbon Dioxide 28 mmol/L (22-30); Chloride 104 mmol/L (98-107); Cholesterol 143 mg/dL (<200); Glucose 89 mg/dL (74-99); HDL Cholesterol 54 mg/dL (40-60); LDL Cholesterol,Calculated 76 mg/dL (0-99); Potassium 4.6 mmol/L (3.5-5.1); Sodium 142 mmol/L (137-145); Total Bilirubin 0.7 mg/dL (0.2-1.3); Total Protein 6.5 g/dL (6.3-8.2); Triglycerides 65 mg/dL (<150)
[2019-08-14] MEDS: NICOTINE 14MG/24HR PATCH TRANSDERM SCH (09:49)
--- NOTE | 2019-08-14 11:34 | P.PN ---
Progress Note - Text Interval history: The patient is found in his room sleeping he is verbally arousable. He was willing to answer questions in his room today. He indicates that he is sleeping during the day because he works all night. 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 He indicates that his hygiene grooming have been impaired because he works outdoors. He states that he will comply with medications versus going to a court hearing. We discussed that he will have a deferral conference with an attorney general and he can make that decision then. He indicates that he would be willing to start taking the Seroquel again at bedtime. The [facility] liaison who is also the patient's case older states that he does do better when he is on the Seroquel with Prolixin. The patient has been eating, he has had minimal participation in group so far. Mental status exam: The patient is found in his room sleeping. He is verbally arousable. He sits up to participate in the conversation. Hygiene is impaired, grooming is impaired. Eye contact is intermittent. He does have spontaneous speech. Thought process is disorganized at times. He describes thoughts that appear to be delusional in nature. He continues to have some thoughts of feeling unsafe but does not provide specifics. He demonstrates no verbal or physical aggressiveness he demonstrates no involuntary repetitive movements. Later in the morning he is observed ambulating in the hallway. He asks me if I am his neighbor posing as a physician. Insight and judgment are impaired. He denies having any thoughts of harming himself or others. Plan: The patient will continue on the Prolixin as written I will add Seroquel 200 mg at bedtime. He is indicating that he is willing to comply with medications. We will monitor him for safety he is encouraged to appropriately participate in the milieu. Vital signs reviewed. He requires continued psychiatric hospitalization due to his symptoms of psychosis. His deferral conference was arranged for Saturday.
[2019-08-14] MEDS: QUEtiapine 200 MG TAB PO SCH (21:52)
[2019-08-14 22:06] LABS: Amphetamine Screen,Urine Not Detected (NotDetected); Barbiturate Screen,Urine Not Detected (NotDetected); Benzodiazepines Screen,Urine Detected (NotDetected); Cocaine Screen,Urine Not Detected (NotDetected); Methadone Screen, Urine Not Detected (NotDetected); Opiate Screen,Urine Not Detected (NotDetected); Oxycodone Screen, Urine Not Detected (NotDetected); Phencyclidine Screen,Urine Not Detected (NotDetected); Tricyclic Antidepressant,Urine Not Detected (NotDetected); Urn Cannabinoid Scrn Not Detected (NotDetected)
[2019-08-15] MEDS: LORazepam 1 MG TAB PO PRN (00:16)
[2019-08-15] MEDS: NICOTINE 14MG/24HR PATCH TRANSDERM SCH (09:06)
--- NOTE | 2019-08-15 11:01 | P.PN ---
Progress Note - Text Progress Note Date: 08/15/19 Interval history: Patient was seen wandering the hallways and was initially hesitant to speak to specification writer however in the end was agreeable. Patient appeared to be skeptical and confused as to why specification writer was interviewing him. Patient was concrete in his answers and gave vague details about the circumstances of his and his admission. He states that "there is a disagreement between me and [facility]" however claims that he is agreeable to be here and take medications. He states that he feels safe on the unit and slept well last night. He claims that he has been taking his medications and states that is helping him. He denies any depression or anxiety at this time. At this time patient denies any suicidal or homicidal ideations intent or plan. Denies any Auditory or visual hallucinations. Patient denies any side effects from the medications and has been compliant with meds. Mental status exam: General Appearance: Patient appears to be older than stated age is alert, directable and suspicious patient has poor hygiene and poor grooming. Behavior: No agitated behavior Speech: Patient's speech is fluent and nonpressured. Mood/Affect: Mood is "fine", affect is congruent and blunted Suicidality/Homicidality: Patient denies having any suicidal or homicidal ideation intent or plan. Perceptions: Patient denies any auditory or visual hallucinations. Though content/process: Patient appears to be suspicious/paranoid and is concrete in his thought process. Memory and concentration: AOX3, grossly intact for the purposes of this session Judgment and insight: Poor Assessment/Plan: Continue with current diagnosis. Patient continues to meet criteria for inpatient psychiatric admission for symptom stabilization and safety.Patient will be maintained on current psychotropic medication regimen. Monitor for medication compliance and for any psychotropic medication side effects. Will continue to monitor ongoing response to treatment.
[2019-08-15] MEDS: QUEtiapine 200 MG TAB PO SCH (21:23)
[2019-08-16] MEDS: LORazepam 1 MG TAB PO PRN (01:13)
[2019-08-16] MEDS: NICOTINE 14MG/24HR PATCH TRANSDERM SCH (08:25)
--- NOTE | 2019-08-16 10:01 | P.PN ---
Progress Note - Text Progress Note Date: 08/16/19 Interval history: Patient was seen wandering the hallways and was agreeable to speak to health technical writer. Patient continues to have poor insight and judgment and appeared to have poor hygiene and grooming. He continues to state that she is here on the unit due to a disagreement with him and [facility]. He also was tangential and illogical and spoke about his family and other issues he has. He states that he feels safe on the unit and slept well last night. He claims that he has been taking his medications and states that is helping him. He denies any depression or anxiety at this time. At this time patient denies any suicidal or homicidal ideations intent or plan. Denies any Auditory or visual quintanilla ucinations. Patient denies any side effects from the medications and has been compliant with meds. Mental status exam: General Appearance: Patient appears to be older than stated age is alert, dire ctable and suspicious patient has poor hygiene and poor grooming. Behavior: No agitated behavior Speech: Patient's speech is fluent and nonpressured. Mood/Affect: Mood is "ok", affect is congruent and blunted Suicidality/Homicidality: Patient denies having any suicidal or homicidal ideation intent or plan. Perceptions: Patient denies any auditory or visual hallucinations. Though content/process: Patient is tangential and illogical. Some loose associations. Memory and concentration: AOX3, grossly intact for the purposes of this session Judgment and insight: Poor Assessment/Plan: Continue with current diagnosis. Patient continues to meet criteria for inpatient psychiatric admission for symptom stabilization and safety. Will increase Prolixin to 5 mg daily +7.5 mg nightly for psychosis. Continue with the rest of current medication regimen. Monitor for medication compliance and for any psychotropic medication side effects. Will continue to monitor ongoing response to treatment.
[2019-08-16] MEDS: QUEtiapine 200 MG TAB PO SCH (21:32)
[2019-08-17] MEDS: LORazepam 1 MG TAB PO PRN (03:46)
[2019-08-17] MEDS: NICOTINE 14MG/24HR PATCH TRANSDERM SCH (09:17)
--- NOTE | 2019-08-17 11:02 | P.PN ---
Progress Note - Text Interval history: The patient is found in the hallway he follows me to an interview room. Prior to meeting with me he was observed yelling at a staff member after he was given a direction to pick something up off the floor he had placed there. He apologized to me for his loud verbalization. He states he wants to be discharged prior to hollowing. He indicates that his episcopalian believes are very important to him. He states that he has the right to use tobacco as his former girlfriend has a heritage. Staff report that the patient informed them that he started a denominational. Mental status exam: The patient is alert he has poor hygiene grooming he has a very disheveled appearance. He is wearing the same clothing the last several days. He appears tired eye contact is intermittent. He has a mumbling speech at times I have to ask him to repeat himself. He spontaneously describes some disorganized delusional thoughts as well as some episcopalian preoccupation. He demonstrates no verbal or physical aggressiveness during our session. He was observed getting verbally agitated very briefly prior to our interaction. He demonstrates no involuntary repetitive movements. Insight and judgment are impaired. Affect is bland for the most part. He reports no suicidal or homicidal ideation intent or plan. Plan: The patient will continue on his current medication however I will titrate the Seroquel to 300 mg at bedtime. We will monitor him for safety. He is encouraged to appropriately participate in the milieu. He appears to be continuing to experience acute symptoms of psychosis which require further inpatient treatment.
[2019-08-17] MEDS ORDERED: QUEtiapine 100 MG TAB PO SCH (21:00)
[2019-08-18] MEDS: NICOTINE 14MG/24HR PATCH TRANSDERM SCH (09:42)
--- NOTE | 2019-08-18 11:10 | P.PN ---
Progress Note - Text Interval history: The patient is found in the hallway he follows me to an interview room. He indicates his mood is okay. He states if we hear him yelling he is just reciting poetry. 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 Staff report that the patient has made other bizarre statements. They indicated he's been directable however. He has been compliant with his medication. I was informed that he did defer when he met with his attorney at law. He has no questions or concerns today. He states he slept throughout the whole evening staff report that he slept 4 hours. He reminds me that he typically does not sleep at night at home and sleeps during the day. Mental status exam: The patient is alert he has a disheveled appearance he is wearing the same clothing which appears dirty and torn in places. Eye contact is intermittent. He does have spontaneous speech, there is some element of psychomotor slowing. Affect remains blunted. He describes his mood is okay. He reports no suicidal or homicidal ideation intent or plan. He is endorsing no auditory or visual hallucinations. He does continue to describe a delusional thought content and he has poor insight into those delusional thoughts. He demonstrates no verbal or physical aggressiveness during our interaction. He demonstrates no involuntary repetitive movements. Plan: The patient will continue on the Prolixin 5 mg in the morning 7.5 mg at bedtime, I will increase the Seroquel to 400 mg at bedtime. He is encouraged to participate in the milieu, we will monitor him for safety. He requires continued psychiatric hospitalization due to his acute psychosis.
[2019-08-18] MEDS: QUEtiapine 400 MG TAB PO SCH (22:03)
[2019-08-19] MEDS: NICOTINE 14MG/24HR PATCH TRANSDERM SCH (08:43)
--- NOTE | 2019-08-19 10:23 | P.PN ---
Progress Note - Text Interval history: The patient is found in the hallway he follows me to an interview room. He states that he was able to resolve several family issues last night by writing. 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 He describes he will be dressing up as a wizard for Halloween. He reports his mood is good. Staff reported he slept 4 hours last evening. Appetite stable. He inquires as to when he will be discharged. He has been complying with his oral medication. Mental status exam: The patient is alert he has a disheveled appearance he is wearing the same torn clothing. Eye contact is intermittent. He demonstrates some psychomotor slowing. For several seconds he looks to the right and stares out the window mid conversation. He denies having any suicidal or homicidal ideation intent or plan. He denies experiencing any auditory or visual hallucinations. He continues to spontaneously demonstrate disorganized delusional thought. He is demonstrating no verbal or physical aggressiveness. Affect remains bland. He demonstrates no involuntary repetitive movements. Insight and judgment into his psychosis limited. Plan: The patient will continue on the Prolixin and Seroquel as written. We will consider titrating his further. He continues to demonstrate symptoms of psychosis. We will monitor him for safety and encourage full participation in the milieu. Vital signs reviewed. Requires continued psychiatric hospitalization
[2019-08-19] MEDS: QUEtiapine 400 MG TAB PO SCH (21:59)
[2019-08-20] MEDS: NICOTINE 14MG/24HR PATCH TRANSDERM SCH (07:53)
--- NOTE | 2019-08-20 11:29 | P.PN ---
Progress Note - Text Interval history: The patient's found in his room. He is writing. He states that he is hoping to be out of the hospital by the . He reports he needs to go to [employer]. He states he was raised "new age" and that's why I might think he is "a space case". He has no questions or concerns regarding his medication. He has been eating. Staff reported he slept 4 hours last evening. Staff report that he attends no groups. Mental status exam: The patient is alert he is cooperative. He maintains a blunted affect. Thought process remains disorganized. He continues to verbalize a disorganized delusional thought content. He reports no thoughts of wanting to harm himself or others. He has a disheveled appearance hygiene is impaired. He demonstrates no verbal or physical aggressiveness he demonstrates no involuntary repetitive movements. He is somewhat stimulus bound and easily distracted. Insight and judgment impaired. Plan: The patient's has been restarted on his medication since he's been here we have been titrating those medications during his stay. We will consider titrating dose further. He continues to demonstrate disorganization of thought and demonstrates a delusional thought content. We will continue to monitor him for safety. He is encouraged to participate in groups although he has been i solating. Vital signs reviewed.
[2019-08-20] MEDS: QUEtiapine 400 MG TAB PO SCH (21:11)
[2019-08-21 07:20] VITALS: BP 116/69; PULSE 52; RESP 14; TEMP 98
[2019-08-21] MEDS: NICOTINE 14MG/24HR PATCH TRANSDERM SCH (09:17)
--- NOTE | 2019-08-21 09:50 | P.PN ---
Progress Note - Text Interval history: The patient's found in his room he follows me to an interview room. He states that he has been in his room writing. He shows me notes but it is illegible. He states he is able to read it. 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 Saturday he hopes to get licensed to make it a business. When asked about auditory hallucinations he denies having them currently but states previously he has heard music in the past which spoke about suicide from [place] and he can explain this further to [facility] if they like. In terms of visual hallucinations again he denies having them but states he believes he can see things on different planes and he is getting his spirit eyes so he can see on that dimension. He appears to be compliant with medication. He continues to isolate in his room. Mental status exam: The patient is alert he presents with impaired hygiene grooming. Eye contact is appropriate. He is verbose he has ongoing speech that is nonpressured. His thought process is tangential and disorganized at times. He reports no suicidal or homicidal ideation. He continues to spontaneously describe disorganized delusions. His delusional thought and thought disorganization continue to demonstrate dysfunction. He demonstrates no verbal or physical aggressiveness. He demonstrates no involuntary repetitive movements. Insight and judgment are impaired. He presents wearing the same clothing which is now more torn than previously. Plan: The patient will continue on his current psychotropic medication however I will titrate the Seroquel to 600 mg at bedtime. The patient remains acutely psychotic causing psychosocial dysfunction. He requires continued psychiatric hospitalization. Vital signs reviewed.
[2019-08-21 16:04] LABS: Appearance,Urine Clear (Clear); Bilirubin,Urine Negative (Negative); Blood,Urine Negative (Negative); Color,Urine Colorless; Glucose,Urine (UA) Negative (Negative); Ketones,Urine Negative (Negative); Leukocyte Esterase,Urine Negative (Negative); Nitrite,Urine Negative (Negative); PH, Urine 7.5 (5.0-8.0); Protein,Urine Negative (Negative); Specific Gravity,Urine 1.003 (1.001-1.035); Urobilinogen,Urine <2.0 mg/dL (<2.0)
[2019-08-21] MEDS: QUEtiapine 200 MG TAB PO SCH (20:43)
[2019-08-21 23:19] LABS: Urine Alcohol Negative (Negative); Urine Barbiturate Negative (Negative); Urine Cocaine Negative (Negative); Urine Methadone Negative (Negative); Urine Opiates Negative (Negative); Urine Phencyclidine Negative (Negative)
[2019-08-22] MEDS: NICOTINE 14MG/24HR PATCH TRANSDERM SCH (09:39)
--- NOTE | 2019-08-22 16:58 | P.PN ---
Progress Note - Text Progress Note Date: 08/22/19 Interval history: Patient is seen in cross coverage today. He presents with multiple pages that he is written and does radiate an excerpt from one of the pages. He makes reference to wondering about discharge. He seems to be consistent with taking his psychotropic medication. Mental status exam: He is alert and cooperative with the interview. His thought processes show some disorganization at times. He does not show any agitation. He does not verbalize any thoughts of harm to self or others. Regarding mood he does not present in a manic fashion. Affect overall is restricted. Plan: He'll be maintained on current psychotropic medication regimen. Continue to monitor for any medication side effects monitor his ongoing response to treatment. Continue to cover this patient through the weekend.
[2019-08-22] MEDS: QUEtiapine 200 MG TAB PO SCH (21:24)
[2019-08-23] MEDS: NICOTINE 14MG/24HR PATCH TRANSDERM SCH (09:24)
--- NOTE | 2019-08-23 15:55 | P.PN ---
Progress Note - Text Progress Note Date: 08/23/19 Interval history: Patient is seen in cross coverage again today. He seemed slept well last night. He is attending some groups and show some pictures that he chely in the group. He relates that he is taking his psychotropic medication does not voice any adverse side effects. Mental status exam: He is alert and cooperative with the interview. He does not show any agitation. His answers are somewhat brief. He does not verbalize any thoughts of harm to self or others. He denies any hallucinations. He describes his mood as pretty good. Plan: Patient will be maintained on current psychotropic medication regimen. Continue to monitor for any medication side effects and monitor his ongoing response to treatment.
[2019-08-23] MEDS: QUEtiapine 200 MG TAB PO SCH (21:00)
[2019-08-24] MEDS: NICOTINE 14MG/24HR PATCH TRANSDERM SCH (08:53)
--- NOTE | 2019-08-24 09:26 | P.PN ---
Progress Note - Text Interval history: The patient's found in his room he follows me to an interview room he indicates that he is doing better. He states he like to be discharged today. He indicates he slept all night. Staff report he slept 4 hours. He again states that he usually does not sleep at night at home. Appetite stable. He's been compliant with his medications. Mental status exam: The patient is alert he is dressed in his own clothing he has showered his grooming is improved. Eye contact is appropriate speech is fluent and spontaneous nonpressured. He denies having any symptoms of psychosis however he has lacked insight into those. During this interaction he did not spontaneously describe any symptoms of psychosis his thought process was mainly focused on discharge but he was able to remain linear with regards to that topic. He demonstrated no verbal or physical aggressiveness he demonstrates no involuntary reported movements. Insight and judgment chronically limited by his diagnosis. Plan: The patient will continue on his current psychotropic medications. We will discuss his progress during treatment team meeting. We will discuss discharge planning. He states he was visited over the weekend by his aunt we will have social work call his aunt to see if the patient seems to be approximating his known baseline function. Vital signs reviewed they're within normal limits. I anticipate he will be appropriate for discharge sometime this week.
[2019-08-24 17:38] VITALS: BMI 30.8
[2019-08-24] MEDS: QUEtiapine 200 MG TAB PO SCH (21:24)
[2019-08-25] MEDS: NICOTINE 14MG/24HR PATCH TRANSDERM SCH (09:37)
--- NOTE | 2019-08-25 11:10 | P.DS ---
Providers Date of admission: 08/13/19 01:21 Expected date of discharge: 08/25/19 Attending physician: Rohan Lagunas Consults: 08/13/19 01:29 Consult Physician Routine Consulting Provider: Vishnu Rangel Consult Reason/Comments: Medical H and P Do you want consulting provider notified?: Yes Primary care physician: Stated None - Discharge Diagnosis(es) (1) Schizoaffective disorder Current Visit: Yes Status: Acute Priority: High (2) Alcohol use disorder Current Visit: Yes Status: Acute Priority: Medium Hospital Course: Brief summary of admission note: This patient is a 44-year-old single male who was admitted to the mental health unit through the emergency room for acute symptoms of psychosis. The patient was petitioned as he was not consistently taking his medication his hygiene grooming were impaired and he had been verbalizing more paranoid thinking. He describes his prescribed medicines as toxins. For full detail please refer to my psychiatric evaluation dated 08/13/2019. Summary of hospital course: The patient was admitted to the mental health unit in voluntarily. A second clinical certificate was completed. A conference was held with his clinical documentation specialist and he decided to defer a court hearing. The patient became agreeable to continuing the oral Prolixin as well as Seroquel. Both medications were titrated. He was seen by internal medicine for routine history and physical exam. Social work met with the patient to complete a psychosocial assessment and to begin discharge planning. The patient did not attend groups. He did attend meals he ambulated in the hallway. During the course of his stay he did demonstrate a slow improvement in his symptoms of psychosis. His thought process has become much more organized. He no longer is appearing spontaneously tangential. He may continue to have residual delusional thought but it is attenuated. He is more able to attend his activities of daily living his hygiene grooming have improved. He is demonstrating no agitated behavior. He verbalizes that he is willing to remain on the oral medication as he does not wish to get any injections. He is reminded that he is on a deferral agreement if he does not continue treatment as ordered he would be rehospitalized. Mental status exam: The patient is alert he is dressed in his own clothing hygiene grooming improved. Eye contact is appropriate. Speech is fluent and spontaneous nonpressured. His thought process is more organized. He demonstrates no tangential thinking loose associations or flight of ideas. He demonstrates no abnormal involuntary movements during this assessment. He reports no suicidal or homicidal ideation intent or plan. He maintains a constricted affect. He demonstrates no verbal or physical aggressiveness. He endorses no auditory or visual hallucinations. Again he may have some residual delusional thought content that he is not verbalizing. He is oriented to person place and date. He is easily directed in the session. Impressions 1. Schizoaffective disorder bipolar type, alcohol use disorder, history of tardive dyskinesia Plan: The patient will be discharged mental health unit today to return home. herbarium worker did speak with the patient's aunt who did visit the patient over the weekend. There were no verbalize concerns about the patient being discharged at this time as it is felt the patient has clinically improved. The patient will continue on Prolixin 5 mg in the morning 7.5 mg at bedtime as well as Seroquel 600 mg at bedtime. The patient requires use of both antipsychotics concurrently to address his acute symptoms of psychosis. This is a strategy that his RV been established with his outpatient clinician. The patient has failed monotherapy in the past with at least Risperdal, invega, and Abilify. Early into this admission we did try to initiate just the Prolixin but there was not sufficient response and the Seroquel was reinitiated as well. At this time there is no imminent safety risk the patient is appropriate for continued care as an outpatient. The patient is instructed to return to the hospital with any acute safety concerns. Patient Condition at Discharge: Stable Plan - Discharge Summary Discharge Rx Participant: No New Discharge Prescriptions: New Nicotine 14Mg/24Hr Patch [Habitrol] 1 patch TRANSDERM DAILY #14 patch fluPHENAZine [Prolixin] 5 mg PO DAILY #30 tab fluPHENAZine [Prolixin] 7.5 mg PO HS #45 tab QUEtiapine FUMARATE [SEROquel] 600 mg PO HS #60 tab Discontinued fluPHENAZine [Prolixin 5MG] 10 mg PO DAILY 30 Days tablet QUEtiapine [SEROquel] 400 mg PO HS 30 Days tab Discharge Medication List Nicotine 14Mg/24Hr Patch [Habitrol] 1 patch TRANSDERM DAILY #14 patch 08/25/19 [Rx] QUEtiapine FUMARATE [SEROquel] 600 mg PO HS #60 tab 08/25/19 [Rx] fluPHENAZine [Prolixin] 5 mg PO DAILY #30 tab 08/25/19 [Rx] fluPHENAZine [Prolixin] 7.5 mg PO HS #45 tab 08/25/19 [Rx] Follow up Appointment(s)/Referral(s): [facility] [Outside] - 08/28/19 10:00 am (08-28-19 @ 10:00 with Lorelei Amos 08-28-19 @ 11:[address] Saunders) None,St[facility] [Primary Care Provider] - 1-2 days Activity/Diet/Wound Care/Special Instructions: Activity and diet as tolerated. No guns or weapons in the home. No alcohol or street drugs not prescribed by physician. Take all medications as prescribed, and attend all follow up appointments as scheduled. If in need of medication refills, please go to your outpatient psychiatric provider, or to your primary care physician. If in crisis, please call , or go to the nearest ER for an evaluation.
== END 2019-08-25 13:05 | disposition home or self-care (01) | DRG 885 ==
LOC: EC 22:01 → 3MHU 08-13 01:21
PROVIDERS: ADMIT Psychiatry & Neurology Psychiatry; ATTEND Psychiatry & Neurology Psychiatry
DX: F25.0 Schizoaffective disorder, bipolar type (principal); E78.5 Hyperlipidemia, unspecified; F10.10 Alcohol abuse, uncomplicated; F17.210 Nicotine dependence, cigarettes, uncomplicated; G24.01 Drug induced subacute dyskinesia; I10 Essential (primary) hypertension; Z79.899 Other long term (current) drug therapy; T43.96XA Underdosing of unspecified psychotropic drug, initial encounter; Z91.128 Patient's intentional underdosing of medication regimen for other reason; F41.9 Anxiety disorder, unspecified; F32.9 Major depressive disorder, single episode, unspecified
CPT/HCPCS: 80053; 80061; 80306; 81003; 82075; 82248; 83036; 84443; 85025; 96372; 99284

== ENCOUNTER 2021-05-03 | Emergency (ER) | payer MEDICARE, OTHER | END 2021-05-03 16:24 | disposition home or self-care (01) | CPT/HCPCS: 82075; 99283 ==

== ENCOUNTER 2024-03-31 09:01 | Emergency (ER) | payer MEDICARE, OTHER ==
--- NOTE | 2024-03-31 10:13 | XR ---
EXAMINATION TYPE: XR abdomen 2V DATE OF EXAM: 03/31/2024 9:41 AM CLINICAL INDICATION:Male, 49 years old with history of Constipation; COMPARISON: None. TECHNIQUE: Two views of the abdomen were obtained. FINDINGS: The bowel gas pattern is nonspecific without dilated loops of small or large bowel. There i s no evidence for organomegaly or pneumoperitoneum. The osseous structures are intact. No abnormal calcifications are present. Fecal material and gas are demonstrated throughout the colon and rectum. IMPRESSION: Nonspecific bowel gas pattern without radiographic evidence for acute process.
--- NOTE | 2024-03-31 10:20 | ED ---
Abdominal Pain HPI - General Chief Complaint: Abdominal Pain Stated Complaint: constipation/mental health Time Seen by Provider: 03/31/24 09:20 Source: patient, RN notes reviewed Mode of arrival: ambulatory Limitations: no limitations - History of Present Illness Initial Comments: This is a 49-year-old male presents emergency department chief complaint of constipation. Patient states that over the past week he has not had a formed bowel movement, states that he has had small bowel movements intermittently. States that he is still passing gas. He last took a laxative at home 5 days ago and does not remember what the name of this medication was. He states that this has been an ongoing issue over the past 5 years after he started taking his antipsychotic medications. He denies hematochezia, dark or tarry stools, dysuria, hematuria, back or flank pain, nausea, vomiting. Denies history of diverticulitis, diverticulosis. Denies previous abdominal surgical history. - Related Data Home Medications Medication Instructions Recorded Confirmed fluPHENAZine HCl 10 mg PO DAILY 05/03/21 05/03/21 Previous Rx's Medication Instructions Recorded QUEtiapine FUMARATE [SEROquel] 600 mg PO HS #60 tab 08/25/19 Allergies Allergy/AdvReac Type Severity Reaction Status Date / Time Penicillins Allergy Mild Unknown Verified 03/31/24 09:05 Childhood Review of Systems ROS Statement: Those systems with pertinent positive or pertinent negative responses have been documented in the HPI. ROS Other: All systems not noted in ROS Statement are negative. Past Medical History Past Medical History: Hyperlipidemia, Hypertension Additional Past Medical History / Comment(s): Pt did not provide any med histo ry, but from previous visits per documentation, pt had hyperlipidemia and HTN. History of Any Multi-Drug Resistant Organisms: None Reported Past Surgical History: Tonsillectomy Past Anesthesia/Blood Transfusion Reactions: No Reported Reaction Past Psychological History: Anxiety, Depression, Schizophrenia Smoking Status: Current every day smoker Past Alcohol Use History: Occasional Past Drug Use History: None Reported - Past Family History Father Additional Family Medical History / Comment(s): Patient is unable to give any history on his mother or father. He does not have any brothers. He has one sister that apparently is healthy. He has no children. General Exam Limitations: no limitations General appearance: alert, in no apparent distress Head exam: Present: atraumatic, normocephalic, normal inspection Eye exam: Present: normal appearance, PERRL, EOMI. Absent: scleral icterus, conjunctival injection, periorbital swelling ENT exam: Present: normal exam, mucous membranes moist Neck exam: Present: normal inspection. Absent: tenderness, meningismus, lymphadenopathy Respiratory exam: Present: normal lung sounds bilaterally. Absent: respiratory distress, wheezes, rales, rhonchi, stridor Cardiovascular Exam: Present: regular rate, normal rhythm, normal heart sounds. Absent: systolic murmur, diastolic murmur, rubs, gallop, clicks GI/Abdominal exam: Present: soft, normal bowel sounds. Absent: distended, tenderness, guarding, rebound, rigid Extremities exam: Present: normal inspection, full ROM, normal capillary refill. Absent: tenderness, pedal edema, joint swelling, calf tenderness Back exam: Present: normal inspection Neurological exam: Present: alert, oriented X3, CN II-XII intact Psychiatric exam: Present: normal mood, flat affect Skin exam: Present: warm, dry, intact, normal color. Absent: rash Course Vital Signs 03/31/24 03/31/24 09:03 10:23 Temperature 98.1 F 98.4 F Pulse Rate 89 74 Respiratory 20 16 Rate Blood Pressure 141/99 124/88 O2 Sat by Pulse 99 95 Oximetry Medical Decision Making - Medical Decision Making Was pt. sent in by a medical professional or institution (MONIKA Ramirez, SCALEHOUSE ATTENDANT, urgent care, hospital, or intermediate...) When possible be specific @ -No Did you speak to anyone other than the patient for history (EMS, parent, family, police, friend...)? What history was obtained from this source @ -I spoke with the patient's son who is at bedside stating that patient has been having ongoing struggles with constipation over the past 5 years. Did you review nursing and triage notes (agree or disagree)? Why? @ -I reviewed and agree with nursing and triage notes Were old charts reviewed (outside hosp., previous admission, EMS record, old EKG, old radiological studies, urgent care reports/EKG's, intermediate records)? Report findings @ -No old charts were reviewed Differential Diagnosis (chest pain, altered mental status, abdominal pain women, abdominal pain men, vaginal bleeding, weakness, fever, dyspnea, syncope, headache, dizziness, GI bleed, back pain, seizure, CVA, palpatations, mental health, musculoskeletal)? @ -Differential Abdominal Pain Men: Appendicitis, cholecystitis, diverticulosis, ischemic bowel, pancreatitis, hepatitis, UTI, gastroenteritis, AAA, incarcerated hernia, bowel obstruction, constipation, inflammatory bowel, hepatitis, peptic ulcer disease, splenic infarction, perforated viscus, testicular torsion, this is not meant to be an all-inclusive list EKG interpreted by me (3pts min.). @ -None X-rays interpreted by me (1pt min.). @ -X-ray KUB no specific acute abdominal process noted. CT interpreted by me (1pt min.). @ -None done U/S interpreted by me (1pt. min.). @ -None done What testing was considered but not performed or refused? (CT, X-rays, U/S, labs)? Why? @ -None What meds were considered but not given or refused? Why? @ -None Did you discuss the management of the patient with other professionals (professionals i.e. , PA, SCALEHOUSE ATTENDANT, lab, RT, psych nurse, social media assistant, platinum and palladium kettle tender, teacher, aoc director combat operations officer, casework specialist)? Give summary @ -No Was smoking cessation discussed for >3mins.? @ -No Was critical care preformed (if so, how long)? @ -No Were there social determinants of health that impacted care today? How? (Homelessness, low income, unemployed, alcoholism, drug addiction, transportation, low edu. Level, literacy, decrease access to med. care, fdc, rehab)? @ -No Was there de-escalation of care discussed even if they declined (Discuss DNR or withdrawal of care, Hospice)? DNR status @ -No What co-morbidities impacted this encounter? (DM, HTN, Smoking, COPD, CAD, Cancer, CVA, ARF, Chemo, Hep., AIDS, mental health diagnosis, sleep apnea, morbid obesity)? @ -None Was patient admitted / discharged? Hospital course, mention meds given and route, prescriptions, significant lab abnormalities, going to OR and other pertinent info. @ -Discharged. 49-year-old male with complaint of constipation. On examination patient abdomen is nontender, no signs of rigidity or rebound tenderness noted. At this time patient will be sent for a x-ray of the abdomen to determine stool burden. On evaluation of x-ray there is no acute intra-abdominal process noted. Patient will be sent home with magnesium citrate to take to relieve constipation. Additionally recommend that patient slat pickler docusate stool softener to take alongside antipsychotic medications which may cause constipation. Recommend that patient follows up with his primary care provider this week for further evaluation as well. All questions answered at bedside, and patient is stable for discharge. Strict return parameters discussed with the patient. Case discussed with my attending Dr. Garcia Undiagnosed new problem with uncertain prognosis? @ -No Drug Therapy requiring intensive monitoring for toxicity (Heparin, Nitro, Insulin, Cardizem)? @ -No Were any procedures done? @ -No Diagnosis/symptom? @ -Constipation Acute, or Chronic, or Acute on Chronic? @ -acute Uncomplicated (without systemic symptoms) or Complicated (systemic symptoms)? @ -Uncomplicated Side effects of treatment? @ -No Exacerbation, Progression, or Severe Exacerbation? @ -No Poses a threat to life or bodily function? How? (Chest pain, [place], [place], pneumonia, PE, COPD, DKA, ARF, appy, cholecystitis, CVA, Diverticulitis, Homicidal, Suicidal, threat to staff... and all critical care pts) @ -No Disposition Clinical Impression: Constipation Disposition: HOME SELF-CARE Condition: Good Instructions (If sedation given, give patient instructions): Constipation (DC), High Fiber Diet (ED) Additional Instructions: Return to the emergency department if your symptoms worsen or improve. Take magnesium citrate at home to aid in constipation relief. Additionally, rec ommend use of docusate stool softener at home. Is patient prescribed a controlled substance at d/c from ED?: No Referrals: None,Stated [Primary Care Provider] - 1-2 days Time of Disposition: 10:46
[2024-03-31 10:27] VITALS: BP 124/88; PULSE 74; RESP 16; TEMP 98.4
[2024-03-31] MEDS: MAGNESIUM CITRATE 296 ML BOTTLE PO ONE (11:04)
== END 2024-03-31 11:02 | disposition home or self-care (01) ==
LOC: EC 09:01
DX: K59.00 Constipation, unspecified (principal); F17.200 Nicotine dependence, unspecified, uncomplicated; Z88.0 Allergy status to penicillin
CPT/HCPCS: 74019; 99284

== ENCOUNTER 2024-11-18 10:25 | Emergency (ER) | payer MEDICARE, OTHER ==
[2024-11-18 10:33] VITALS: TEMP 97.6
--- NOTE | 2024-11-18 10:55 | ED ---
Dizziness HPI - General Chief Complaint: Dizziness Stated Complaint: Abn EKG Time Seen by Provider: 11/18/24 10:52 Source: patient, RN notes reviewed Mode of arrival: ambulatory Limitations: no limitations - History of Present Illness Initial Comments: 49-year-old male with history of hyperlipidemia, hypertension, schizophrenia presenting to the ER with chief complaint of dizziness x 1 year. Patient's mental health counselors at bedside who explains that patient has been experiencing dizzy spells for about a year. Describes the spells as feeling as though he is going to pass out. Patient states this occurs when he stands from a sitting position and usually takes about a minute to resolve. States last episode was about a week ago. Denies chest pain, shortness of breath, headaches, fevers, abdominal pain. Mental health counselor took him to urgent care today where they told him he had an abnormal EKG and sent him to the ER. Patient is currently asymptomatic. Denies any medication changes in the past several months. Denies blood thinners. He does not regularly follow with a PCP. - Related Data Home Medications Medication Instructions Recorded Confirmed fluPHENAZine HCl 10 mg PO DAILY 05/03/21 05/03/21 Previous Rx's Medication Instructions Recorded QUEtiapine FUMARATE [SEROquel] 600 mg PO HS #60 tab 08/25/19 Allergies Allergy/AdvReac Type Severity Reaction Status Date / Time Penicillins Allergy Mild Unknown Verified 03/31/24 09:05 Childhood Review of Systems ROS Statement: Those systems with pertinent positive or pertinent negative responses have been documented in the HPI. ROS Other: All systems not noted in ROS Statement are negative. Past Medical History Past Medical History: Hyperlipidemia, Hypertension Additional Past Medical History / Comment(s): Pt did not provide any med history, but from previous visits per documentation, pt had hyperlipidemia and HTN. History of Any Multi-Drug Resistant Organisms: None Reported Past Surgical History: Tonsillectomy Past Anesthesia/Blood Transfusion Reactions: No Reported Reaction Past Psychological History: Anxiety, Depression, Schizophrenia Smoking Status: Current every day smoker Past Alcohol Use History: Occasional Past Drug Use History: None Reported - Past Family History Father Additional Family Medical History / Comment(s): Patient is unable to give any history on his mother or father. He does not have any brothers. He has one sister that apparently is healthy. He has no children. General Exam Limitations: no limitations General appearance: alert, in no apparent distress Head exam: Present: atraumatic, normocephalic, normal inspection Eye exam: Present: normal appearance, PERRL, EOMI. Absent: scleral icterus, conjunctival injection, periorbital swelling ENT exam: Present: normal exam, mucous membranes moist Respiratory exam: Present: normal lung sounds bilaterally. Absent: respiratory distress, wheezes, rales, rhonchi, stridor Cardiovascular Exam: Present: regular rate, normal rhythm, normal heart sounds. Absent: systolic murmur, diastolic murmur, rubs, gallop, clicks Neurological exam: Present: alert, oriented X3, CN II-XII intact Psychiatric exam: Present: normal affect, normal mood Skin exam: Present: warm, dry, intact, normal color. Absent: rash Course Vital Signs 11/18/24 11/18/24 10:26 12:20 Temperature 97.6 F Pulse Rate 87 Respiratory 16 Rate Blood Pressure 133/90 Blood Pressure 122/87 [Right Arm Standing] Blood Pressure 119/80 [Right Arm Supine] Blood Pressure 118/84 [Right Arm] O2 Sat by Pulse 96 Oximetry EKG Findings - EKG Results: EKG: interpreted by MIRANDAD (EKG reveals normal sinus rhythm with T wave inversions in leads III and V1. Ventricular rate 89 bpm, MS interval 143, QRS duration 98, QT/QTc 374/421) Medical Decision Making - Medical Decision Making Was pt. sent in by a medical professional or institution (MONIKA Ramirez, WAREHOUSE LOGISTICS COORDINATOR, urgent care, hospital, or [facility]...) When possible be specific @ -Sent by urgent care for abnormal EKG Did you speak to anyone other than the patient for history (EMS, parent, family, police, friend...)? What history was obtained from this source @ -Mental health counselor supplemented history Did you review nursing and triage notes (agree or disagree)? Why? @ -I reviewed and agree with nursing and triage notes Were old charts reviewed (outside hosp., previous admission, EMS record, old EKG, old radiological studies, urgent care reports/EKG's, [facility] records)? Report findings @ -EKG from urgent care reviewed and interpreted by me as normal sinus rhythm with no ST changes Differential Diagnosis (chest pain, altered mental status, abdominal pain women, abdominal pain men, vaginal bleeding, weakness, fever, dyspnea, syncope, headache, dizziness, GI bleed, back pain, seizure, CVA, palpatations, mental he alth, musculoskeletal)? @ -Differential Dizziness: Benign paroxysmal positional Vertigo, Meniere's disease, otitis media, acoustic neuroma, vertebrobasilar insufficiency, cerebellar stroke, encephalitis, hypovolemic, arrhythmia, coronary artery syndrome, anemia, this is not meant to be an all-inclusive list EKG interpreted by me (3pts min.). @ -As above X-rays interpreted by me (1pt min.). @ -None done CT interpreted by me (1pt min.). @ -CT brain no acute intracranial abnormality U/S interpreted by me (1pt. min.). @ -None done What testing was considered but not performed or refused? (CT, X-rays, U/S, labs)? Why? @ -None What meds were considered but not given or refused? Why? @ -None Did you discuss the management of the patient with other professionals (professionals i.e. , PA, WAREHOUSE LOGISTICS COORDINATOR, lab, RT, psych nurse, social work lecturer, hot dip plater, teacher, wildlife conservation officer, comp field case manager)? Give summary @ -No Was smoking cessation discussed for >3mins.? @ -No Was critical care preformed (if so, how long)? @ -No Were there social determinants of health that impacted care today? How? (Homelessness, low income, unemployed, alcoholism, drug addiction, transportation, low edu. Level, literacy, decrease access to med. care, fpc, rehab)? @ -No Was there de-escalation of care discussed even if they declined (Discuss DNR or withdrawal of care, Hospice)? DNR status @ -No What co-morbidities impacted this encounter? (DM, HTN, Smoking, COPD, CAD, Cancer, CVA, ARF, Chemo, Hep., AIDS, mental health diagnosis, sleep apnea, morbid obesity)? @ -None Was patient admitted / discharged? Hospital course, mention meds given and route, prescriptions, significant lab abnormalities, going to OR and other pertinent info. @ -Discharge. This is a 49-year-old male sent from urgent care for abnormal EKG. Patient states he has been having episodes of lightheadedness after standing from sitting position for about a year. Last episode 1 week ago, currently asymptomatic. Vital signs within acceptable limits. EKG reveals normal sinus rhythm with no acute ischemic changes. EKG from urgent care reviewed with Dr. Lobo and myself and interpreted as normal sinus rhythm with no acute ST changes. Lab work including CBC, CMP, troponin unremarkable. CT brain no acute intracranial abnormality. Discussed results with patient. I believe it is safe to discharge patient home with close follow-up with PCP. Appropriate return precautions discussed with patient. Case was discussed with my ED attending Dr. Lobo. Undiagnosed new problem with uncertain prognosis? @ -No Drug Therapy requiring intensive monitoring for toxicity (Heparin, Nitro, Insulin, Cardizem)? @ -No Were any procedures done? @ -No Diagnosis/symptom? @ -Dizziness Acute, or Chronic, or Acute on Chronic? @ -Acute Uncomplicated (without systemic symptoms) or Complicated (systemic symptoms)? @ -Uncomplicated Side effects of treatment? @ -No Exacerbation, Progression, or Severe Exacerbation? @ -No Poses a threat to life or bodily function? How? (Chest pain, [place], [place], pneumonia, PE, COPD, DKA, ARF, appy, cholecystitis, CVA, Diverticulitis, Homicidal, Suicidal, threat to staff... and all critical care pts) @ -No - Lab Data Result diagrams: 11/18/24 11:00 11/18/24 11:00 Lab Results 11/18/24 11/18/24 11/18/24 Range/Units 11:00 11:00 11:00 WBC 6.4 (3.8-10.6) k/uL RBC 6.36 H (4.30-5.90) m/uL Hgb 18.7 H (13.0-17.5) gm/dL Hct 55.9 H (39.0-53.0) % MCV 87.9 (80.0-100.0) fL MCH 29.4 (25.0-35.0) pg MCHC 33.5 (31.0-37.0) g/dL RDW 14.8 (11.5-15.5) % Plt Count 160 (150-450) k/uL MPV 9.4 Neutrophils % 45 % Lymphocytes % 48 % Monocytes % 5 % Eosinophils % 0 % Basophils % 1 % Neutrophils # 2.9 (1.3-7.7) k/uL Lymphocytes # 3.1 (1.0-4.8) k/uL Monocytes # 0.3 (0-1.0) k/uL Eosinophils # 0.0 (0-0.7) k/uL Basophils # 0.1 (0-0.2) k/uL Sodium 138 (137-145) mmol/L Potassium 4.4 (3.5-5.1) mmol/L Chloride 107 (98-107) mmol/L Carbon Dioxide 21 L (22-30) mmol/L Anion Gap 10 mmol/L BUN 8 L (9-20) mg/dL Creatinine 0.84 (0.66-1.25) mg/dL Est GFR (CKD-EPI)AfAm >90 (>60 ml/min/1.73 sqM) Est GFR (CKD-EPI)NonAf >90 (>60 ml/min/1.73 sqM) Glucose 92 (74-99) mg/dL Calcium 9.1 (8.4-10.2) mg/dL Total Bilirubin 0.7 (0.2-1.3) mg/dL AST 16 L (17-59) U/L ALT 15 (4-49) U/L Alkaline Phosphatase 52 (38-126) U/L Troponin I <0.012 (0.000-0.034) ng/mL Total Protein 7.0 (6.3-8.2) g/dL Albumin 4.1 (3.5-5.0) g/dL Disposition Clinical Impression: Dizziness Disposition: HOME SELF-CARE Condition: Stable Instructions (If sedation given, give patient instructions): Dizziness (ED) Additional Instructions: Follow-up with PCP as discussed. Please return to the Emergency Department if symptoms worsen or any other concerns. Is patient prescribed a controlled substance at d/c from ED?: No Referrals: None,Stated [Primary Care Provider] - 1-2 days Forms: Area PCPs Time of Disposition: 12:46
[2024-11-18 11:12] LABS: Basophils # (A) 0.1 k/uL (0-0.2); Basophils % (A) 1 %; Eosinophils % (A) 0 %; HGB 18.7 gm/dL (13.0-17.5); Lymphocytes # (A) 3.1 k/uL (1.0-4.8); Lymphocytes % (A) 48 %; MCH 29.4 pg (25.0-35.0); MCHC 33.5 g/dL (31.0-37.0); MCV 87.9 fL (80.0-100.0); Mean Platelet Volume 9.4; Monocytes # (A) 0.3 k/uL (0-1.0); Monocytes % (A) 5 %; Neutrophils # (A) 2.9 k/uL (1.3-7.7); Neutrophils % (A) 45 %; Platelet Count 160 k/uL (150-450); RBC 6.36 m/uL (4.30-5.90); RDW 14.8 % (11.5-15.5); WBC 6.4 k/uL (3.8-10.6)
[2024-11-18 11:25] LABS: ALT 15 U/L (4-49); AST 16 U/L (17-59); African American GFR (CKD) >90 (>60 ml/min/1.73 sqM); Albumin 4.1 g/dL (3.5-5.0); Alkaline Phosphatase 52 U/L (38-126); Anion Gap 10 mmol/L; Blood Urea Nitrogen 8 mg/dL (9-20); Calcium 9.1 mg/dL (8.4-10.2); Carbon Dioxide 21 mmol/L (22-30); Chloride 107 mmol/L (98-107); Glucose 92 mg/dL (74-99); Non-African American GFR(CKD) >90 (>60 ml/min/1.73 sqM); Potassium 4.4 mmol/L (3.5-5.1); Sodium 138 mmol/L (137-145); Total Bilirubin 0.7 mg/dL (0.2-1.3)
[2024-11-18 11:43] LABS: HCT 55.9 % (39.0-53.0)
--- NOTE | 2024-11-18 12:31 | CT ---
EXAMINATION TYPE: CT brain wo con DATE OF EXAM: 11/18/2024 COMPARISON: None. CLINICAL INDICATION: Male, 49 years old with history of dizziness; PHH, dizziness for past few days TECHNIQUE: CT of the brain performed without contrast with sagittal and coronal reformats. CT DLP: 1154.4 mGycm Automated exposure control for dose reduction was used. FINDINGS: There is no acute intracranial hemorrhage, mass effect, or midline shift identified. The ventricles and sulci are within normal limits in size. Pardo-white matter differentiation is maintained. No suspi cious opacification of the mastoid air cells bilaterally. There is soft tissue density consistent wit h cerumen seen in the deep external auditory canals bilaterally. The globes are intact and the visual ized sinuses are clear. IMPRESSION: No acute intracranial hemorrhage or midline shift is seen. [facility], , 11/18/2024 12:28 PM
[2024-11-18 12:53] VITALS: BP 113/77; PULSE 57; RESP 18
== END 2024-11-18 13:00 | disposition home or self-care (01) ==
LOC: EC 10:25
DX: R42 Dizziness and giddiness (principal); F17.200 Nicotine dependence, unspecified, uncomplicated; Z88.0 Allergy status to penicillin
CPT/HCPCS: 36415; 70450; 80053; 84484; 85025; 93005; 99285